=== PATIENT | male | born 1945 | race Caucasian/White ===

== ENCOUNTER 2018-03-24 11:54 | Outpatient (CLI) | payer MEDICARE, OTHER, SELFPAY ==
[2018-03-24 14:22] LABS: Cholesterol 202 mg/dL (50-200); HDL Cholesterol 76 mg/dL (40-60); LDL CHOLESTEROL 116 mg/dL (<100); Triglyceride 87 mg/dL (30-150)
[2018-03-25 11:30] LABS: PSA, Screening 10.5 ng/ml (0-6.5)
== END 2018-03-24 12:14 ==
PROVIDERS: PCP Family Medicine; Visit Provider Family Medicine
DX: R97.20 Elevated prostate specific antigen [PSA] (principal); I10 Essential (primary) hypertension; Z12.5 Encounter for screening for malignant neoplasm of prostate
CPT/HCPCS: 36415; 80061; 83721; 84153

== ENCOUNTER 2018-08-31 14:28 | Outpatient (CLI) | payer MEDICARE, OTHER, SELFPAY ==
[2018-08-31 14:54] LABS: Bilirubin Negative (Negative); Blood Trace-intact (Negative); Clarity Clear; Glucose Negative (Negative); Ketones Negative (Negative); Leukocyte Esterase Negative (Negative); Nitrite Negative (Negative); Urobilinogen 0.2 EU/dL (Up TO 0.2); pH 6.5 (5-8)
[2018-08-31 15:06] LABS: Bacteria Negative HPF (Negative); C & S Indicated? No; Casts Negative LPF (Negative); Crystals Negative HPF (Negative); Epithelial Cells Negative HPF (Negative); Mucus Negative (Negative); WBC 0-2 HPF (0-5)
[2018-08-31 15:44] LABS: ALT 22 U/L (12-78); AST 23 U/L (15-37); Albumin 3.9 g/dL (3.4-5.0); Alkaline Phosphatase 54 U/L (46-116); Anion Gap 8.5 mmol/L (3-11); BUN 21 mg/dL (7-18); Bilirubin, Total 0.8 mg/dL (0.2-1.0); CO2 31.5 mmol/L (21.0-32.0); CREATININE 1.85 mg/dL (0.70-1.30); Calcium 9.2 mg/dL (8.5-10.1); Chloride 106 mmol/L (98-107); Estimated GFR 35.91 (mL/min/1.73m2); Glucose 123 mg/dL (70-100); Potassium 3.2 mmol/L (3.5-5.1); Sodium 146 mmol/L (136-145); Total Protein 6.9 g/dL (6.4-8.2)
[2018-09-01 09:25] LABS: PSA, Screening 12.2 ng/ml (0-6.5)
== END 2018-08-31 14:48 ==
PROVIDERS: PCP Family Medicine
DX: R30.0 Dysuria (principal); R97.20 Elevated prostate specific antigen [PSA]; N40.0 Benign prostatic hyperplasia without lower urinary tract symptoms; I10 Essential (primary) hypertension; Z12.5 Encounter for screening for malignant neoplasm of prostate
CPT/HCPCS: 80053; 84153; 81003; 81015

== ENCOUNTER 2018-09-02 00:42 | Outpatient (CLI) | payer MEDICARE, OTHER, SELFPAY ==
--- NOTE | 2018-09-02 07:32 | DI.US_ITS ---
SYMPTOM/DIAGNOSIS: NEW ONSET URINARY INCONTINENCE, LOW GRADE FEVER, HYPERTENSION, I10, ELEVATED PSA, R97.20,N40.0 RENAL ULTRASOUND: Routine examination was performed. The right kidney measures 11.1 cm. in length. No renal mass or calculus is identified. There is mild to moderate dilatation of the renal collecting system and visualized proximal ureter which persists following voiding. The left kidney measures 11.8 cm. in length. No renal mass or calculus is identified. There is moderate dilatation of the left renal collecting system and visualized proximal ureter which persists following voiding. The urinary bladder prevoid volume is 490 cc's. The bladder wall appears mild to moderately thickened. No intraluminal mass is seen. Incidental note is made of a 1.9 cm. diverticulum along the superior pole of the urinary bladder. Both ureteral jets were visualized. Postvoid urinary bladder volume was large at 400 cc's. The prostate gland is enlarged with an estimated volume of 106 cc's. IMPRESSION: 1. Prostatic hypertrophy. 2. Large postvoid urinary bladder volume. 3. Diffusely thickened urinary bladder wall. This may be due to chronic bladder outlet obstruction. Inflammatory or infectious cystitis cannot be excluded. 4. Persistent dilatation of the collecting systems following voiding. Renal colic CT may be considered for further evaluation.
== END 2018-09-02 01:02 ==
PROVIDERS: PCP Family Medicine
DX: R32 Unspecified urinary incontinence (principal); R50.9 Fever, unspecified; N32.9 Bladder disorder, unspecified; R39.198 Other difficulties with micturition; R97.20 Elevated prostate specific antigen [PSA]; N40.0 Benign prostatic hyperplasia without lower urinary tract symptoms; I10 Essential (primary) hypertension
CPT/HCPCS: 76770

== ENCOUNTER → 2018-09-04 09:40 | Outpatient (BNVA) | payer MEDICARE, OTHER, SELFPAY | PROVIDERS: PCP Family Medicine; Visit Provider Urology | DX: N13.9 Obstructive and reflux uropathy, unspecified (principal) | CPT/HCPCS: 51702 ==

== ENCOUNTER → 2018-09-08 08:00 | Outpatient (BNVA) | payer MEDICARE, OTHER, SELFPAY | PROVIDERS: PCP Family Medicine; Visit Provider Nurse Practitioner Gerontology | DX: R33.9 Retention of urine, unspecified (principal); Z46.6 Encounter for fitting and adjustment of urinary device; I10 Essential (primary) hypertension; R97.20 Elevated prostate specific antigen [PSA]; N40.1 Benign prostatic hyperplasia with lower urinary tract symptoms; R94.4 Abnormal results of kidney function studies | CPT/HCPCS: 51798; 99204; 99215 ==

== ENCOUNTER → 2018-09-16 09:59 | Outpatient (BNVA) | payer MEDICARE, OTHER, SELFPAY | PROVIDERS: PCP Family Medicine; Visit Provider Nurse Practitioner Gerontology | DX: N40.1 Benign prostatic hyperplasia with lower urinary tract symptoms (principal); R33.8 Other retention of urine | CPT/HCPCS: 51798; 99213 ==

== ENCOUNTER → 2018-09-17 08:19 | Outpatient (BNVA) | payer MEDICARE, OTHER, SELFPAY | PROVIDERS: PCP Family Medicine; Visit Provider Nurse Practitioner Gerontology | DX: N40.1 Benign prostatic hyperplasia with lower urinary tract symptoms (principal); R33.9 Retention of urine, unspecified; R97.20 Elevated prostate specific antigen [PSA]; N39.0 Urinary tract infection, site not specified | CPT/HCPCS: 51798; 81003; 99214 ==

== ENCOUNTER 2018-09-17 11:50 | Outpatient (REF) | payer MEDICARE, OTHER, SELFPAY | END 2018-09-17 12:10 | LOC: LBN 11:50 | PROVIDERS: PCP Family Medicine; Visit Provider Nurse Practitioner Gerontology | DX: R33.9 Retention of urine, unspecified (principal) | CPT/HCPCS: 87077; 87086 ==

== ENCOUNTER 2018-09-17 13:12 | Outpatient (CLI) | payer MEDICARE, OTHER, SELFPAY ==
--- NOTE | 2018-09-17 09:30 | DI.US_ITS ---
SYMPTOM/DIAGNOSIS: URINARY RETENTION, R33.9, HYDRONEPHROSIS RENAL ULTRASOUND: The right kidney measures 11.1 by 6.4 by 7.3 cm. The left kidney measures 11.2 by 6.9 by 7.1 cm. The prevoid bladder contains 271 cc's. The postvoid bladder contains 199 cc's. Both ureteral jets were visualized. The bladder wall is 6 mm. in thickness. The prostate is considerably enlarged at a volume of 133 cc. Note is made also of a moderate quantity of debris in the bladder. The bladder wall is trabeculated and thickened. There is bilateral moderate hydronephrosis and note is made of a small left sided bladder wall diverticulum measuring 1.4 by 1.2 by 1.6 cm. There has been no significant interval change when compared with a prior examination of 09/02/18.
== END 2018-09-17 13:32 ==
PROVIDERS: PCP Family Medicine; Visit Provider Nurse Practitioner Gerontology
DX: N13.30 Unspecified hydronephrosis (principal); N40.0 Benign prostatic hyperplasia without lower urinary tract symptoms; N32.3 Diverticulum of bladder
CPT/HCPCS: 51798; 76770; 81003; 99214

== ENCOUNTER 2018-10-05 01:04 | Outpatient (CLI) | payer MEDICARE, OTHER, SELFPAY ==
--- NOTE | 2018-10-05 07:28 | DI.US_ITS ---
SYMPTOM/DIAGNOSIS: F/U HYDRONEPHROSIS, N13.90 RENAL ULTRASOUND: Routine examination. Comparison is made with 09/17/18. The right kidney measures 10 cm. long. There is again seen moderate stable bilateral hydronephrosis. No solid renal mass or calculus is identified. The left kidney measures 12.0 cm. long. There is stable moderate hydronephrosis. No solid renal mass or calculus is seen. The prevoid urinary bladder volume is 540 cc's. The bladder wall appears mildly thickened and irregular. No intraluminal mass is seen. The postvoid urinary bladder volume is 300 cc's. Prostatic volume is enlarged at 95 cc's and impinges upon the base of the bladder. IMPRESSION: Stable bilateral hydronephrosis. Stable appearance of the urinary bladder. Large postvoid urinary bladder volume.
== END 2018-10-05 01:24 ==
PROVIDERS: PCP Family Medicine; Visit Provider Urology
DX: N13.30 Unspecified hydronephrosis (principal); R33.9 Retention of urine, unspecified; N40.0 Benign prostatic hyperplasia without lower urinary tract symptoms
CPT/HCPCS: 76770; 99213

== ENCOUNTER 2018-10-19 12:59 | Inpatient (IN) | payer MEDICARE, OTHER, SELFPAY ==
[2018-10-19] VITALS (13 sets, daily range): BP systolic 100–173; BP diastolic 42–74; PULSE 58–90; RESP 13–20; TEMP 34–37.2; O2SAT 94–98
[2018-10-19] MEDS: Lactated Ringers 1,000 ML 80 ML IV ×3 (10:13→21:42)
--- NOTE | 2018-10-19 10:45 | HPE_ITS ---
Date of service: 10/19/18 Time of Service: 10:40 Assessment and Plan (1) Urinary retention: Current visit: No Status: Acute Since he still has bilateral hydronephrosis in spite of maximal medical therapy, we gave him the option of intermittent catheter sedation versus surgical treatment. He has elected to go ahead with simple prostatectomy via transurethral resection and vaporization of the prostate using bipolar cautery History of Present Illness Chief Complaint: Obstructive uropathy Narrative: This is a 73-year-old gentleman who was initially seen with urinary retention, overflow incontinence and bilateral hydronephrosis. We placed a Desai catheter and started him on alpha blockers. After removing the catheter, he did have clinical improvement, but he continued to have bilateral hydronephrosis on ultrasound. He presents now for transurethral resection of prostate. He has no current dysuria or gross hematuria. He does have some overflow incontinence. Review of Systems Review of Systems No fevers or chills No vision change or dysphasia No diabetes or thyroid No shortness of breath, cough or hemoptysis No chest pain or palpitations Hx GERD and hiatal hernia No seizures, strokes or peripheral neuropathy No bleeding disorders or anemia No gout PFSH Medical History Urinary retention (Acute) Benign prostatic hyperplasia (Chronic) UTI (urinary tract infection) (Acute) Heart burn Hyperlipidemia Hypertension TIA (transient ischemic attack) Surgical History H/O cataract extraction (Inactive) Colonoscopy - IV Sedation MACULAR PUCKER SURGERY excision of, parotid tumor/gland transesophageal echo Family History Mother Stroke Hypertension Father No problems noted. Brother Stroke Social History Smoking/Tobacco Use Status: Former Tobacco Use Quit Date: 06/30/94 Alcohol Intake: current Alcohol Intake frequency: a few times a month Alcohol type: beer and wine Drug use: Never Substance use type: does not use Household members: spouse Pets and animals: Yes Pets and animals: cat(s) What type of physical activity do you participate in: walking and bicycling Duration: 45-60 minutes/day Frequency: daily Venus/Mosque: Restorationist Special venus needs: No Seatbelt use: always Helmet use: Yes Helmet use: always Do you feel safe at home: Yes Do you feel safe in your relationship?: Yes Meds Home Medications Medication Instructions Recorded Confirmed Type aspirin [Aspirin Low-Strength] 81 mg PO DAILY tab-cap 02/07/15 10/19/18 History amlodipine 2.5 mg PO DAILY #90 tab-cap 02/24/18 10/19/18 Rx lisinopril-hydrochlorothiazide 1 tab-cap PO DAILY #90 tab-cap 02/24/18 10/19/18 Rx metoprolol succinate ER 100 mg 100 mg PO DAILY #90 tab-cap 08/11/18 10/19/18 Rx tablet,extended release 24 hr pantoprazole 40 mg tablet,delayed 40 mg PO DAILY PRN #90 tab-cap 08/11/1809/29 Rx release simvastatin 40 mg tablet 40 mg PO DAILY #90 tab-cap 08/11/18 10/19/18 Rx tamsulosin 0.4 mg capsule 0.8 mg PO DAILY #90 cap 09/16/18 10/19/18 Rx Allergies Allergy/AdvReac Type Severity Reaction Status Date / Time milk AdvReac Mild mucus Verified 10/19/18 09:55 Exam Narrative Exam Narrative: He is in no current distress. He is cooperative. He does not appear septic or toxic. His vital signs are documented elsewhere in the chart. His chest wall motion is normal. He does not appear short of breath at rest. His lungs are clear. Cardiac exam shows a regular rate and rhythm. His abdomen is soft with no guarding or rebound tenderness. The kidneys liver and spleen are nonenlarged. There is some suprapubic fullness. There is no amputations or deformities found. He does have a trace of edema in both lower extremities. He is awake, alert and oriented. Results Last Vital Signs Temp 34.0 C L 10/19/18 09:59 Pulse 65 10/19/18 09:59 Resp 16 10/19/18 09:59 BP 173/74 H 10/19/18 09:59 Pulse Ox 96 10/19/18 09:59
[2018-10-19] MEDS: ceFAZolin 1 GM/50 ML BAG IVPB (11:24)
[2018-10-19] MEDS: Lidocaine 2% Jelly 6 ML SYR (11:35)
--- NOTE | 2018-10-19 12:40 | PROST_PTH ---
PATIENT: Meng Kaur LOC: U#:[id number] AGE/SX: 73/M ROOM: [id number] RE10/19/[address]: Joe Julio MD : 1945 BED: A DIS: 10/20/2018 SPEC #: [id number] RECD: 10/19/18 17:37 STATUS: SOUT REQ #: [id number] DOUGIE: 10/19/18 12:[address]: Joe Julio DEPT: Surgical Specimen RECD BY: Georgina Kyle ENTERED: 10/19/18 17:37 SP TYPE: PROST OTHR DR: Dejuan Henderson MD Tissues: 1 - PROSTATE CURRETTINGS Procedures: GROSS AND MICRO LEVEL 4 Comments: [id number]
[2018-10-19] MEDS: fentaNYL 100 MCG/2 ML VIAL IVP ×2 (13:28→13:44)
[2018-10-19] MEDS: traMADol 50 MG TAB PO (14:35)
--- NOTE | 2018-10-19 15:01 | NUR.NOTE ---
Nursing Note: Pt to MS floor from PACU at 1415. A&Ox3. VSS. at bedside. Pt able to transfer to bed with assistance. Three way irrigation munoz; dark red, draining well. No clots evident. Pt familiarized with hospital environment, call christianson within reach. RN will continue to monitor.
--- NOTE | 2018-10-19 15:28 | ROE_ITS ---
DATE OF PROCEDURE: October 19, 2018 PREOPERATIVE DIAGNOSIS: Obstructive uropathy. POSTOPERATIVE DIAGNOSIS: Same. PROCEDURE: Cystoscopy; transurethral resection of prostate with vaporization using bipolar cautery. SURGEON: Joe Julio M.D. ANESTHESIA: General. COMPLICATIONS: None. ESTIMATED BLOOD LOSS: 300 cc's SPECIMENS: Prostate chips. HISTORY: This is a 73-year-old gentleman who initially presented with overflow incontinence and bila teral hydronephrosis. He had a Desai catheter placed and was started on alpha blockers. His urinary symptoms improved, but he continued to have bilateral hydronephrosis. He presents now fo r a transurethral resection. OPERATIVE REPORT: The patient was brought to the Operating Room on 10/19/18. He was given preoperati ve antibiotics. After successful induction of general anesthesia, he was placed in the dorsal lithotomy position. Hi s genitalia was prepped and draped. A 24 Rwandan resectoscope sheath was passed through the urethra into the bladder. We used the visual o bturator to visualize the prostatic lumen. The pendulous, bulbous and membranous urethras all appeared normal. The prostate showed an elevated bladder neck and marked lateral lobe enlargement. He didn't have much of a median lobe. His bladder showed numerous diverticula and trabeculations. No bladder tumors were seen. No stones were present. We then utilized a bipolar resectoscope loop to resect the prostate tissue from the bladder neck out to the verumontanum. The depth of the resection was down to the prostatic capsule. All resected ti ssue was evacuated and sent to Pathology for permanent section. Toward the end of the resection we switched over to the bipolar button and vaporized the prostate eric k to the capsule. This allowed for more hemostasis than the resectoscope alone. Once the resection was completed, we filled the bladder with irrigant. We removed the resectoscope a nd passed a 24 Rwandan hematuria catheter through the urethra into the bladder. The catheter balloon was inflated with 50 cc's of sterile water. Continuous bladder irrigation with saline was begun. Tr action was placed on the catheter until the irrigant became clear.
[2018-10-19] MEDS: Ketorolac 15 MG/ML VIAL IVP ×2 (15:55→21:42)
[2018-10-19] MEDS: Normal Saline Flush 10 ML SYR IV ×2 (15:56→21:41)
[2018-10-19] MEDS: Simvastatin 40 MG TAB PO (19:54)
[2018-10-20] MEDS: Normal Saline Flush 10 ML SYR IV ×2 (01:32→06:18)
[2018-10-20] MEDS: Ketorolac 15 MG/ML VIAL IVP (06:18)
--- NOTE | 2018-10-20 07:07 | W.PM.PROGNOT ---
Date of Service Date of service: 10/20/18 Time of Service: 07:00 Assessment and Plan (1) Urinary retention: Current visit: No Status: Acute We will discontinue both his IV fluids and his continuous bladder irrigation. I will recheck him in another hour or so once his blood work is available. At that point, we can decide if we need to restart his bladder irrigation or if we could discharge him from the hospital today. If he is able to be discharged, we will also decide if we can remove his catheter today or if he should go home with a catheter and come back for voiding trial in a few days. Subjective Interval history since last seen: He had a fairly comfortable night with no episodes of clot retention. He is tolerating p.o. intake with no nausea or vomiting. He is not been febrile or lightheaded. He has no shortness of breath. He has no chest pain. Exam Narrative Exam Narrative: He looks well. His vital signs are documented elsewhere. His urine is clear with CBI. He is awake and alert. His lab work is pending as of this time Objective Objective Clinical Data: Vital Signs Temperature 36.7 C 10/19/18 23:57 Temperature Source Tympanic 10/19/18 23:57 Pulse 62 10/19/18 23:57 Pulse Rhythm Regular 10/19/18 19:45 Respiratory Rate 18 10/19/18 23:57 Respiratory Effort Non-Labored 10/19/18 19:45 Respiratory Depth Normal 10/19/18 19:45 Respiratory Pattern Normal 10/19/18 19:45 Blood Pressure 112/58 L 10/19/18 23:57 Pulse Oximetry 95 10/19/18 23:57 Oxygen Delivery Method Room Air 10/19/18 23:57 Oxygen Flow Rate 0 10/19/18 23:57 Pain Level 6 10/19/18 14:35 Intake & Output 10/19/18 10/19/18 10/20/18 11:59 23:59 11:59 Intake Total 50 / 3202.000 3152.000 / 3202.000 400 / 400 Balance 50 / 3202.000 3152.000 / 3202.000 400 / 400 Weight 77.6 kg Intake: IV 50 / 7980.932 4342.000 / 1971.000 Oral 1230 / 1230 400 / 400 Other: Urine Color Dark Red Urine Appearance Clear Hematuria Comment No complications noted at time of admission to MS floor. Flushing well. RN will continue to monitor. Emesis Description None
[2018-10-20 07:15] LABS: HCT 29.2 % (40.0-50.0); HGB 9.4 g/dL (13.5-17.5); Mean Corp. HGB Concentration 32.2 g/dL (32.0-36.0); Mean Corpuscular Hemoglobin 28.9 pg (27.0-33.0); Mean Corpuscular Volume 89.8 fL (80-95); Mean Platelet Volume 11.9 fL (8.0-11.0); Platelet Count 112 x1000/uL (130-400); RBC 3.25 m/cumm (4.50-6.00); RBC Distribution Width 13.3 % (11.8-14.1); White Blood Cell Count 6.49 k/cumm (4.4-10.8)
[2018-10-20 07:19] LABS: Anion Gap 6.9 mmol/L (3-11); BUN 21 mg/dL (7-18); CO2 29.1 mmol/L (21.0-32.0); CREATININE 1.74 mg/dL (0.70-1.30); Chloride 104 mmol/L (98-107); Estimated GFR 38.44 (mL/min/1.73m2); Glucose 102 mg/dL (70-100); Potassium 3.4 mmol/L (3.5-5.1); Sodium 140 mmol/L (136-145)
[2018-10-20 07:43] VITALS: BP 131/66; PULSE 80; RESP 16; TEMP 37.2; O2SAT 94
[2018-10-20] MEDS: Metoprolol CR 100 MG TABCR PO (07:46)
[2018-10-20] MEDS: amLODIPine 2.5 MG TAB PO (07:46)
[2018-10-20] MEDS: hydroCHLOROthiazide 12.5 MG TAB PO (07:46)
[2018-10-20] MEDS: Lisinopril 20 MG TAB PO (07:47)
[2018-10-20] MEDS: Potassium Chloride 10 MEQ TABCR PO (12:17)
--- NOTE | 2018-10-20 14:10 | PDOC.CMIN ---
- If Service Date Differs Date of service: 10/20/18 Time of Service: 14:11 Care Management Initial Assess REASON FOR HOSPITALIZATION:: Urinary retention PAST MEDICAL HISTORY/PAST SURGICAL HISTORY:: Medical History: Urinary retention, Benign prostatic hyperplasia, UTI (urinary tract infection). Heart burn, Hyperlipidemia, Hypertension, TIA (transient ischemic attack). Surgical History: H/O cataract extraction,. Colonoscopy - IV Sedation. MACULAR PUCKER SURGERY. excision of, parotid tumor/gland. transesophageal echo PREVIOUS FUNCTIONAL STATUS/SOCIAL/FAMILY SUPPORTS:: Meng lives at home with his in an apartment in [place]. He has no children but his has 4 adult children who live in [place] and [place]. He is independent with all activities and drives. He is retired but remains very active. CURRENT FUNCTIONAL STATUS:: Meng was sitting up in bed during CM visit. He was open to answering questions and was engaged. He hopes to be discharged today. Has patient been provided with information about the portal?: Yes Did the patient sign up for the portal?: No CODE STATUS:: Full Code INSURANCE COVERAGE / FINANCIAL ISSUES:: Medicare. [employer] CURRENT HOME/COMMUNITY SERVICES/EQUIPMENT:: none PRIMARY CARE PHYSICIAN:: Dejuan Henderson MD POTENTIAL DISCHARGE NEEDS:: None PATIENT/FAMILY EDUCATION NEEDS:: Discharge plan, limitations, munoz catheter care, follow up plan of care and Ask Me Three ANTICIPATED BARRIERS TO DISCHARGE:: None TRANSPORTATION:: Via private auto with PLAN:: Meng will be discharged home with a munoz catheter in place. He is to follow up with Urology or Friday for catheter removal and again in a week or two for bladder scanning.
--- NOTE | 2018-10-20 14:35 | INITIAL_ITS ---
- If Service Date Differs Date of service: 10/20/18 Time of Service: 14:11 Care Management Initial Assess REASON FOR HOSPITALIZATION:: Urinary retention PAST MEDICAL HISTORY/PAST SURGICAL HISTORY:: Medical History: Urinary retention, Benign prostatic hyperplasia, UTI (urinary tract infection). Heart burn, Hyperlipidemia, Hypertension, TIA (transient ischemic attack). Surgical History: H/O cataract extraction,. Colonoscopy - IV Sedation. MACULAR PUCKER SURGERY. excision of, parotid tumor/gland. transesophageal echo PREVIOUS FUNCTIONAL STATUS/SOCIAL/FAMILY SUPPORTS:: Meng lives at home with his in an apartment in [place]. He has no children but his has 4 adult children who live in [place] and [place]. He is independent with all activities and drives. He is retired but remains very active. CURRENT FUNCTIONAL STATUS:: Meng was sitting up in bed during CM visit. He was open to answering questions and was engaged. He hopes to be discharged today. Has patient been provided with information about the portal?: Yes Did the patient sign up for the portal?: No CODE STATUS:: Full Code INSURANCE COVERAGE / FINANCIAL ISSUES:: Medicare. [employer] CURRENT HOME/COMMUNITY SERVICES/EQUIPMENT:: none PRIMARY CARE PHYSICIAN:: Dejuan Henderson MD POTENTIAL DISCHARGE NEEDS:: None PATIENT/FAMILY EDUCATION NEEDS:: Discharge plan, limitations, munoz catheter care, follow up plan of care and Ask Me Three ANTICIPATED BARRIERS TO DISCHARGE:: None TRANSPORTATION:: Via private auto with PLAN:: Meng will be discharged home with a munoz catheter in place. He is to follow up with Urology or Friday for catheter removal and again in a week or two for bladder scanning.
--- NOTE | 2018-10-20 14:35 | PDOC.CMDIS ---
- If Service Date Differs Date of service: 10/20/18 Time of Service: 14:35 LACE Index Scoring Tool - Questions: Length of Stay (in days): 1 Acuity (Admit via E.D.?): No E.D. Visits: 0 - Answers: Total Score: 1 Risk of Readmission: Low Risk Care Management Discharge Reason for Hospitalization: Urinary retention Discharge Plan: Meng will be discharged home with a munoz catheter in place. He is to follow up with Urology or Friday for catheter removal and again in a week or two for bladder scanning. Patient/Family Education Needs: Discharge plan, limitations, munoz catheter care, follow up plan of care and Ask Me Three
--- NOTE | 2018-10-20 16:11 | DSE_ITS ---
Date of service: 10/20/18 Time of Service: 11:29 DS: Diagnosis Discharge Diagnosis (1) Urinary retention: Status: Acute Discharge Plan Disposition Patient Disposition: HOME Condition: Stable Discharge Details Reason For Visit: OBSTRUCTIVE UROPATHY Admit Date/Time: 10/19/18 12:59 Admit Provider: Joe Julio Attending Provider: Joe Julio Primary Care Provider: Dejuan Henderson Hospital Course Hospital Course: The patient was admitted and underwent a TURP with vaporization of the prostate on 10/19/18. A munoz catheter was left in place and continuous bladder irrigation was run overnight. By POD #1, his irrigant was clear, so we discontinued the bladder irrigation. His urine was red tinged but transparent, so we are discharging him to home with his catheter still in place. Home Meds and New Rx's Prescriptions: New sulfamethoxazole-trimethoprim [Bactrim DS] 800-160 mg tablet 1 tab PO DAILY Qty: 7 RF: 0 No Action tamsulosin 0.4 mg capsule 0.8 mg PO DAILY Qty: 90 RF: 4 tramadol 50 mg tablet 50 mg PO Q6H PRN (Reason: pain) Qty: 12 RF: 0 aspirin [Aspirin Low-Strength] 81 MG tablet,chewable 81 mg PO DAILY RF: 0 lisinopril-hydrochlorothiazide 1 EACH tablet 1 tab-cap PO DAILY Qty: 90 RF: 3 amlodipine 2.5 MG tablet 2.5 mg PO DAILY Qty: 90 RF: 3 metoprolol succinate 100 mg tablet extended release 24 hr 100 mg PO DAILY Qty: 90 RF: 4 pantoprazole 40 mg tablet,delayed release (DR/EC) 40 mg PO DAILY PRN (Reason: gerd) Qty: 90 RF: 1 simvastatin 40 mg tablet 40 mg PO DAILY Qty: 90 RF: 4 Discharge Instructions Instructions: Transurethral Prostatectomy (DC) Additional Instructions: Munoz to leg bag F/U or Friday for catheter removal Also needs F/U appt for 1 to 2 weeks for bladder scan and to review pathology Pt to remain off aspirin until catheter removed Stand Alone Forms: Nursing Discharge Form Referrals: Joe Julio MD [ [facility] STAFF PHYSICIAN] - 11/03/18 9:00 am Laila Bray NP [NURSE PRACTITIONER] - 10/22/18 8:00 am Activity:: no lifting over 10 pounds Equipment/Supplies:: munoz to leg bag Diet:: As Tolerated Discharge Orders Discharge Orders: Discharge Order (Routine); Ordered 10/20/18 Ordered By: Joe Julio Discharge Data Discharge Date/Time-TO BE ENTERED AT DEPARTURE: 10/20/18 13:26 Exam Narrative Exam Narrative: At the time of discharge, he looked comfortable. His vital signs are documented elsewhere. His chest wall motion was normal. He is not short of breath at rest. Cardiac exam showed a regular rate and rhythm. His abdomen is soft with no masses. His bladder was not distended. Munoz catheter was in place and was draining pink tinged urine but no clots were seen He is awake and alert. DS: Data Vitals/I&O Vitals and I&O: Vital Signs Temperature 37.2 C 10/20/18 07:43 Temperature Source Skin 10/20/18 07:43 Pulse 80 10/20/18 07:43 Pulse Rhythm Regular 10/20/18 07:44 Respiratory Rate 16 10/20/18 07:43 Respiratory Effort Non-Labored 10/20/18 07:44 Respiratory Depth Normal 10/20/18 07:44 Respiratory Pattern Normal 10/20/18 07:44 Blood Pressure 131/66 10/20/18 07:43 Pulse Oximetry 94 L 10/20/18 07:43 Oxygen Delivery Method Room Air 10/19/18 23:57 Oxygen Flow Rate 0 10/19/18 23:57 Pain Level 0 10/20/18 07:43 Intake & Output 10/19/18 10/20/18 10/20/18 23:59 11:59 23:59 Intake Total 3152.000 / 3202.000 500 / 500 Balance 3152.000 / 3202.000 500 / 500 Intake: IV 1922.000 / 1972.000 100 / 100 Oral 1230 / 1230 400 / 400 Other: Urine Color Dark Red Urine Appearance Hematuria Hematuria Comment No complications noted at time of admission to MS floor. Flushing well . RN will continue to monitor. Emesis Description None Labs on day of discharge: Labs from last 24 hours 10/20/18 10/20/18 06:04 06:04 WBC 6.49 RBC 3.25 L Hgb 9.4 L Hct 29.2 L MCV 89.8 MCH 28.9 MCHC 32.2 RDW 13.3 Plt Count 112 L MPV 11.9 H Sodium 140 Potassium 3.4 L Chloride 104 Carbon Dioxide 29.1 Anion Gap 6.9 BUN 21 H Creatinine 1.74 H Estimated GFR/1.73 m2 38.44 Glucose 102 H Calcium 8.0 L PFSH Medical History Urinary retention (Acute) Benign prostatic hyperplasia (Chronic) UTI (urinary tract infection) (Acute) Heart burn Hyperlipidemia Hypertension TIA (transient ischemic attack) Surgical History H/O cataract extraction (Inactive) Colonoscopy - IV Sedation MACULAR PUCKER SURGERY excision of, parotid tumor/gland transesophageal echo Family History Mother Stroke Hypertension Father No problems noted. Brother Stroke Social History Smoking/Tobacco Use Status: Former Tobacco Use Quit Date: 06/30/94 Alcohol Intake: current Alcohol Intake frequency: a few times a month Alcohol type: beer and wine Drug use: Never Substance use type: does not use Household members: spouse Pets and animals: Yes Pets and animals: cat(s) What type of physical activity do you participate in: walking and bicycling Duration: 45-60 minutes/day Frequency: daily Venus/Mormon: Sabianism Special venus needs: No Seatbelt use: always Helmet use: Yes Helmet use: always Do you feel safe at home: Yes Do you feel safe in your relationship?: Yes
== END 2018-10-20 13:26 | disposition home or self-care (01) | DRG 713 ==
LOC: PDS 13:17 → MS 13:57
PROVIDERS: Admitting Provider Urology; PCP Family Medicine; Visit Provider Urology
PROC: 0VT08ZZ Resection of Prostate, Via Natural or Artificial Opening Endoscopic (ICD-10-PCS; CPT 52601; principal; 2018-10-19 11:00)
DX: N40.0 Benign prostatic hyperplasia without lower urinary tract symptoms (principal); N13.30 Unspecified hydronephrosis; R33.8 Other retention of urine; N41.1 Chronic prostatitis; N32.3 Diverticulum of bladder; N32.89 Other specified disorders of bladder; N39.490 Overflow incontinence; I10 Essential (primary) hypertension; E78.5 Hyperlipidemia, unspecified
CPT/HCPCS: 52601; 36415; 80048; 85027; 88305; 99213; NC; J0690; J1885; J2405; J3010

== ENCOUNTER → 2018-10-22 07:50 | Outpatient (BNVA) | payer MEDICARE, OTHER, SELFPAY | PROVIDERS: PCP Family Medicine; Visit Provider Nurse Practitioner Gerontology | DX: R33.9 Retention of urine, unspecified (principal); I10 Essential (primary) hypertension; Z48.816 Encounter for surgical aftercare following surgery on the genitourinary system | CPT/HCPCS: 99213 ==

== ENCOUNTER → 2018-10-26 09:16 | Outpatient (BNVA) | payer MEDICARE, OTHER, SELFPAY | PROVIDERS: PCP Family Medicine; Visit Provider Urology | DX: R33.9 Retention of urine, unspecified (principal); I10 Essential (primary) hypertension; Z48.816 Encounter for surgical aftercare following surgery on the genitourinary system; N13.9 Obstructive and reflux uropathy, unspecified | CPT/HCPCS: 51798 ==

== ENCOUNTER → 2018-11-30 08:19 | Outpatient (BNVA) | payer MEDICARE, OTHER, SELFPAY | PROVIDERS: PCP Family Medicine; Visit Provider Urology | DX: R33.9 Retention of urine, unspecified (principal); I10 Essential (primary) hypertension | CPT/HCPCS: 51798; 99213 ==

== ENCOUNTER 2018-11-30 08:46 | Outpatient (CLI) | payer MEDICARE, OTHER, SELFPAY ==
[2018-11-30 11:07] LABS: Albumin 3.6 g/dL (3.4-5.0); Anion Gap 6.8 mmol/L (3-11); BUN 23 mg/dL (7-18); CO2 29.2 mmol/L (21.0-32.0); Calcium 9.3 mg/dL (8.5-10.1); Chloride 106 mmol/L (98-107); Estimated GFR 53.82 (mL/min/1.73m2); Glucose 84 mg/dL (70-100); PHOSPHORUS 2.9 mg/dL (2.6-4.7); Potassium 4.1 mmol/L (3.5-5.1); Sodium 142 mmol/L (136-145)
== END 2018-11-30 09:06 ==
PROVIDERS: Nurse Practitioner Gerontology; PCP Family Medicine; Visit Provider Urology
DX: N28.9 Disorder of kidney and ureter, unspecified; R33.9 Retention of urine, unspecified; I10 Essential (primary) hypertension
CPT/HCPCS: 36415; 51798; 80069; 99213; 82565

== ENCOUNTER 2019-05-01 19:49 | Emergency (ER) | payer MEDICARE, OTHER, SELFPAY ==
[2019-05-01 19:52] VITALS: BP 166/67; PULSE 78; RESP 16; TEMP 36.8; O2SAT 97
--- NOTE | 2019-05-01 20:18 | W.ED.GENAD ---
Discharge Plan Disposition Patient Disposition: HOME Condition: Good Discharge Details Chief Complaint: DentalOral Clinical Impression: Gingival abscess Primary Care Provider: Dejuan Henderson ED Provider: Liborio Melendez Home Meds and New Rx's Prescriptions: New amoxicillin-pot clavulanate [Augmentin] 875-125 mg tablet 1 tab PO BID 7 Days Qty: 14 RF: 0 No Action doxycycline hyclate 100 mg tablet 100 mg PO BID Qty: 20 RF: 0 metoprolol succinate 100 mg tablet extended release 24 hr 100 mg PO DAILY Qty: 90 RF: 4 aspirin [Aspirin Low-Strength] 81 MG tablet,chewable 81 mg PO DAILY RF: 0 lisinopril-hydrochlorothiazide 1 EACH tablet 1 tab-cap PO DAILY Qty: 90 RF: 3 amlodipine 2.5 MG tablet 2.5 mg PO DAILY Qty: 90 RF: 3 pantoprazole 40 mg tablet,delayed release (DR/EC) 40 mg PO DAILY PRN (Reason: gerd) Qty: 90 RF: 1 simvastatin 40 mg tablet 40 mg PO DAILY Qty: 90 RF: 4 guaifenesin [Mucinex] 600 mg tablet extended release 12hr 600 mg PO Q12H PRN (Reason: congestion) Qty: 30 RF: 0 Discharge Instructions Instructions: Dental Abscess (ED) Additional Instructions: The abscess has been drained. Please take the new antibiotic Augmentin as directed. Please stop taking the doxycycline. This was a good antibiotic however I do feel that Augmentin would be better now that we know that this is likely coming from your teeth. Please follow-up closely with your dentist on Friday. If at that time there is still swelling, and atypical morphology of the gingiva it may require a biopsy. In the meantime I would recommend giving it time to allow it to heal first before reassessment. Please continue to take Tylenol for pain. You can also take 1 dose of ibuprofen 600 mg daily. He will not have any significant interaction with your aspirin. If you notice any worsening of your symptoms, or any new symptoms such as vomiting, diarrhea, fever, chills, shortness of breath, chest pain, numbness, weakness, or fainting , please return immediately to the emergency department for reevaluation. Please follow up with your primary care provider as soon as possible for reassessment and reevaluation. As always, it was a pleasure participating in your medical care today. Referrals: Dejuan Henderson [Primary Care Provider] - Medical Decision Making This is a 73-year-old male who presents for a lesion on his right upper gumline. Is over tooth 6 and 7. Patient had mild swelling and pain in this area 2 days ago, he was treated with doxycycline for potential cellulitis. The swelling began today, also began having a mild amount of purulent/bloody discharge. The area was incised and drained and a notable amount of purulent material did come out. After the procedure the remaining gingival flap did feel slightly atypical and thickened compared to normal. This does elicit concern that there may have been an underlying pathology of the gingiva/mucosa prior to this swelling episode. We will transition the patient to Augmentin as I feel this may be more ideal now that we know that this is a tooth related etiology. Discussed the importance and potential need for biopsy if the atypical tactile nature of the gingival mucosa remains after healing. Discussed red flags for which to return. Of note patient's pain and symptoms nearly completely resolved after lysing of the abscess. I have extensively reviewed the treatment plan and discharge instructions with the patient and their family. I have addressed all patient concerns at this time. The patient and family was made aware of what symptoms to monitor for that would warrant a return to the emergency department. Discussed the plan with the patient and family, they demonstrate verbal understanding and agreement with our assessment and plan at this time. Time out was taken to identify the correct patient, procedure, and site. Risks and benefits were discussed with the patient and consent was obtained. Direct pressure was held over the area prior to the procedure to reduce painful injection. Hurricaine gel was applied around the tooth over the painful tooth. Moderate analgesia was obtained. The abscess was then incised with a 1 cm incision with an 11 blade and a moderate amount of pus and blood returned. The patient tolerated the procedure. There were no complications. HPI General Date/Time Provider Initiated Documentation: 05/01/19 19:57. HPI Narrative: This is a 73-year-old male with a past medical history of hypertension, high cholesterol, who presents today for evaluation of swelling and drainage in his right upper dental space. Patient states that 2 to 3 days ago he demonstrated some mild swelling in the right side of his face with some pain over the upper tooth. At that time there is no evidence of abscess, and he was started on doxycycline for concern for cellulitis. He has had 2 days of doxycycline for the cellulitis. However since then he has noticed a significant amount of swelling over the right upper gingival space. It has been draining a small amount of pus and blood. He presents now for evaluation of this. He does admit to mild to moderate pain. He has been taking Tylenol which is slightly improved the pain. He denies any other complaints at this time. He denies any fever, chills, neck pain or headache. He does have a distant tobacco abuse history for smoking, but he denies any tobacco to use. He does have an appointment with his dentist in 2 days. Related Data Home Medications Medication Instructions Recorded Confirmed aspirin [Aspirin Low-Strength] 81 mg PO DAILY tab-cap 02/07/15 05/01/19 amlodipine 2.5 mg PO DAILY #90 tab-cap 02/24/18 05/01/19 lisinopril-hydrochlorothiazide 1 tab-cap PO DAILY #90 tab-cap 02/24/18 05/01/19 pantoprazole 40 mg tablet,delayed 40 mg PO DAILY PRN #90 tab-cap 08/11/18 05/01/19 release simvastatin 40 mg tablet 40 mg PO DAILY #90 tab-cap 08/11/18 05/01/19 metoprolol succinate 100 mg 100 mg PO DAILY #90 tab-cap 03/16/19 05/01/19 tablet,extended release 24 hr guaifenesin 600 mg tablet, 600 mg PO Q12H PRN #30 tab 04/29/19 05/01/19 extended release 12 hr doxycycline hyclate 100 mg tablet 100 mg PO BID #20 tab 04/30/19 05/01/19 amoxicillin-pot clavulanate 1 tab PO BID 7 Days #14 tab 05/01/19 [Augmentin] Previous Rx's Medication Instructions Recorded amlodipine 2.5 mg PO DAILY #90 tab-cap 02/24/18 lisinopril-hydrochlorothiazide 1 tab-cap PO DAILY #90 tab-cap 02/24/18 pantoprazole 40 mg tablet,delayed 40 mg PO DAILY PRN #90 tab-cap 08/11/18 release simvastatin 40 mg tablet 40 mg PO DAILY #90 tab-cap 08/11/18 metoprolol succinate 100 mg 100 mg PO DAILY #90 tab-cap 03/16/19 tablet,extended release 24 hr guaifenesin 600 mg tablet, 600 mg PO Q12H PRN #30 tab 04/29/19 extended release 12 hr doxycycline hyclate 100 mg tablet 100 mg PO BID #20 tab 04/30/19 amoxicillin-pot clavulanate 1 tab PO BID 7 Days #14 tab 05/01/19 [Augmentin] Allergies Allergy/AdvReac Type Severity Reaction Status Date / Time milk AdvReac Mild mucus Verified 04/30/19 11:15 General Stated Complaint: DentalOral RUSS: 3 Review of Systems All systems reviewed & are unremarkable except as noted in HPI and below PFSH Family History (Updated 03/18/19 @ 09:48 by Edu Collins) Mother , AGE 86 Stroke Hypertension Father , AGE 39 No problems noted. Brother , AGE 77 Stroke Maternal Grandfather , age 80 No problems noted. Paternal Grandfather , age 80s No problems noted. Maternal Grandmother , age 90s No problems noted. Paternal Grandmother , age 90s No problems noted. Social History (Updated 03/18/19 @ 09:43 by Edu Collins) Smoking/Tobacco Use Status: Former Tobacco Use Quit Date: 06/30/94 Tobacco: How many years used: 25 Alcohol Intake: current Alcohol Intake frequency: a few times a month Alcohol type: beer and wine Drug use: Never Substance use type: does not use Household members: spouse Housing: apartment Communication Needs: None Do you need help understanding health information?: Never Pets and animals: Yes Pets and animals: cat(s) Sexually active: Yes Do you think of yourself as: straight/heterosexual Current gender identity: decline to answer What is your relationship status?: How often do you talk on the phone with friends or family?: decline to answer How often do you get together with friends or relatives?: decline to answer How often do you attend islam or scientology services?: decline to answer Do you belong to any clubs or organized social groups?: decline to answer Panel score (0-1 are the most socially isolated patients): 1 What type of physical activity do you participate in: walking, weight lifting and running Duration: 30-45 minutes/day Frequency: 3-4 times per week Venus/Congregational: Oriental Orthodox Special venus needs: No Seatbelt use: always Helmet use: No Drive intox or ride w/intox medical delivery driver: No Do you feel safe at home: Yes Do you feel safe in your relationship?: Yes Exam Narrative Exam Narrative: 1.Const: Well-nourished, Well-developed, appearing stated age 2.Eyes: PERRL, no conjunctival injection, and symmetrical lids. 3.ENT: Atraumatic external nose and ears. Moist MM. Neck: Symmetric, trachea midline, No thyromegaly. There are notable dental caries, the patient does have small fluctuant bulge over tooth 6 and 7. Small amount of purulent drainage is present. No other evidence of infection or cellulitis anywhere else. No significant swelling over the face. 4.CVS: +S1/S2, No murmurs or gallops. Peripheral pulses 2+ and equal in all extremities. Brisk capillary refill in all extremities. 5.RESP: Unlabored respiratory effort. Clear to auscultation bilaterally. No wheezes rales or rhonchi 6.GI: Soft, Nontender/Nondistended, No hepatosplenomegaly. No guarding or rebound. 7.MSK: Normocephalic/Atraumatic, Extremities w/o deformity or ttp No cyanosis or clubbing, Normal movement of all extremities 8.Skin: Warm, Dry. No rashes or lesions. 9.Neuro: stopping builder II-XII grossly intact. Sensation grossly intact, no focal neurologic deficits. 10.Psych: (AAO) x3. Appropriate mood and affect Course Vital Signs Vital signs: Vital Signs Temperature 36.8 C 05/01/19 19:52 Pulse 78 05/01/19 19:52 Respiratory Rate 16 05/01/19 19:52 Blood Pressure 166/67 H 05/01/19 19:52 Pulse Oximetry 97 05/01/19 19:52 Temperature 36.8 C 05/01/19 19:52 Pulse 78 05/01/19 19:52 Respiratory Rate 16 05/01/19 19:52 Respiratory Effort 05/01/19 19:56 Blood Pressure 166/67 H 05/01/19 19:52 Blood Pressure Position Supine 05/01/19 19:52 Pulse Oximetry 97 05/01/19 19:52 Oxygen Delivery Method Room Air 05/01/19 19:52 Oxygen Flow Rate 0 05/01/19 19:52 Pain Level 7 05/01/19 19:52
[2019-05-01] MEDS: Amoxicillin 875/Clav. 125 TAB PO (20:26)
--- NOTE | 2019-05-01 20:33 | NUR.NOTE ---
Med a/o. abscess drained by MD Melendez. Discharge instructions reviewed with verbal understanding. aware to f/u with dentist on Thursday 05/03 as planned. Augmentin script given. Ambulated to exit with steady gait.
== END 2019-05-01 20:35 | disposition home or self-care (01) ==
LOC: ER 20:21
PROVIDERS: Emergency Provider Student in an Organized Health Care Education/Training Program; PCP Family Medicine
DX: K04.7 Periapical abscess without sinus (principal); I10 Essential (primary) hypertension
CPT/HCPCS: 10060; 99283

== ENCOUNTER 2019-05-25 07:54 | Outpatient (CLI) | payer MEDICARE, OTHER, SELFPAY ==
[2019-05-25 09:07] LABS: CREATININE 1.49 mg/dL (0.70-1.30); Estimated GFR 45.98 (mL/min/1.73m2)
== END 2019-05-25 08:14 ==
PROVIDERS: PCP Family Medicine; Visit Provider Family Medicine
DX: R33.9 Retention of urine, unspecified (principal)
CPT/HCPCS: 36415; 82565

== ENCOUNTER → 2019-06-01 08:29 | Outpatient (BNVA) | payer MEDICARE, OTHER, SELFPAY | PROVIDERS: PCP Family Medicine; Referring Provider Family Medicine; Visit Provider Urology | DX: R33.9 Retention of urine, unspecified (principal) | CPT/HCPCS: 99213 ==

== ENCOUNTER 2019-12-07 03:42 | Outpatient (CLI) | payer MEDICARE, OTHER, SELFPAY ==
[2019-12-07 12:59] LABS: BUN 26 mg/dL (7-18); CREATININE 1.44 mg/dL (0.70-1.30); Calcium 9.4 mg/dL (8.5-10.1); Chloride 105 mmol/L (98-107); Glucose 124 mg/dL (74-106); Potassium 4.3 mmol/L (3.5-5.1); Sodium 143 mmol/L (136-145)
== END 2019-12-07 04:02 ==
PROVIDERS: PCP Family Medicine; Visit Provider Urology
DX: R33.9 Retention of urine, unspecified (principal)
CPT/HCPCS: 36415; 80048

== ENCOUNTER → 2019-12-14 14:49 | Outpatient (BNVA) | payer MEDICARE, OTHER, SELFPAY | PROVIDERS: PCP Family Medicine; Referring Provider Family Medicine; Visit Provider Urology | DX: R33.8 Other retention of urine (principal); R97.20 Elevated prostate specific antigen [PSA] | CPT/HCPCS: 99213 ==

== ENCOUNTER 2020-02-02 08:27 | Outpatient (CLI) | payer MEDICARE, OTHER, SELFPAY ==
[2020-02-02 12:50] LABS: Calculated LDL 124 mg/dL (<100); Cholesterol 207 mg/dL (<200); HDL Cholesterol 67 mg/dL (40-60); Triglyceride 80 mg/dL (<150)
[2020-02-02 13:54] LABS: Hemoglobin A1C 5.8 % (3.8-5.6)
== END 2020-02-02 08:47 ==
PROVIDERS: PCP Family Medicine; Visit Provider Family Medicine
DX: E78.5 Hyperlipidemia, unspecified (principal); R73.9 Hyperglycemia, unspecified
CPT/HCPCS: 36415; 80061; 83036

== ENCOUNTER 2020-05-30 03:40 | Outpatient (CLI) | payer MEDICARE, OTHER, SELFPAY ==
[2020-05-30 11:01] LABS: Anion Gap 6.3 mmol/L (3-11); BUN 32 mg/dL (7-18); CO2 29.7 mmol/L (21.0-32.0); CREATININE 1.31 mg/dL (0.70-1.30); Calcium 9.6 mg/dL (8.5-10.1); Chloride 106 mmol/L (98-107); Glucose 87 mg/dL (74-106); Potassium 4.6 mmol/L (3.5-5.1); Sodium 142 mmol/L (136-145)
[2020-05-30 21:58] LABS: PSA, Diagnostic 4.7 ng/mL (0.0-6.5)
== END 2020-05-30 04:00 ==
PROVIDERS: PCP Family Medicine; Visit Provider Urology
DX: R33.9 Retention of urine, unspecified (principal); R97.20 Elevated prostate specific antigen [PSA]
CPT/HCPCS: 36415; 80048; 84153

== ENCOUNTER → 2020-06-13 09:18 | Outpatient (BNVA) | payer MEDICARE, OTHER, SELFPAY | PROVIDERS: PCP Family Medicine; Referring Provider Family Medicine; Visit Provider Urology | DX: R33.8 Other retention of urine (principal); I10 Essential (primary) hypertension | CPT/HCPCS: 99213 ==

== ENCOUNTER 2020-11-28 02:49 | Outpatient (CLI) | payer MEDICARE, OTHER, SELFPAY ==
[2020-11-28 11:15] LABS: Anion Gap 7.8 mmol/L (3-11); BUN 27 mg/dL (7-18); CO2 30.2 mmol/L (21.0-32.0); CREATININE 1.5 mg/dL (0.70-1.30); Calcium 9.6 mg/dL (8.5-10.1); Chloride 105 mmol/L (98-107); Estimated GFR 45.38 (mL/min/1.73m2); Glucose 87 mg/dL (74-106); Potassium 4.5 mmol/L (3.5-5.1); Sodium 143 mmol/L (136-145)
== END 2020-11-28 02:50 | disposition home or self-care (01) ==
LOC: LBO 02:49
PROVIDERS: PCP Family Medicine; Visit Provider Urology
DX: R33.9 Retention of urine, unspecified (principal)
CPT/HCPCS: 36415; 80048

== ENCOUNTER 2020-11-30 00:50 | Outpatient (CLI) | payer MEDICARE, OTHER, SELFPAY ==
--- NOTE | 2020-11-30 08:30 | DI.RAD_ITS ---
Exam(s) XR FOOT LT COMPLETE EXAM: XR FOOT LT COMPLETE CLINICAL HISTORY: r/o stress fracture,FOOT PAIN, M79.673. TECHNIQUE: 2D digital imaging was performed. COMPARISON: No exams were available for comparison FINDINGS: BONES: No acute or healing fracture is present. No bony destructive lesion is seen. Small plantar alicia caneal spur. JOINTS: No dislocation present. SOFT TISSUE: Normal. Atherosclerosis. IMPRESSION: No acute abnormality. DATA REPOSITORY: RADIATION DOSE DELIVERED:
== END 2020-11-30 01:10 ==
PROVIDERS: PCP Family Medicine; Visit Provider Nurse Practitioner
DX: M79.672 Pain in left foot (principal); M77.32 Calcaneal spur, left foot
CPT/HCPCS: 73630

== ENCOUNTER → 2020-12-12 09:50 | Outpatient (BNVA) | payer MEDICARE, OTHER, SELFPAY | PROVIDERS: PCP Family Medicine; Referring Provider Family Medicine; Visit Provider Nurse Practitioner Gerontology | DX: R33.8 Other retention of urine (principal) | CPT/HCPCS: 99213 ==

== ENCOUNTER 2021-02-19 02:12 | Outpatient (CLI) | payer MEDICARE, OTHER, SELFPAY ==
[2021-02-19 11:06] LABS: Source Nasal/Nares
[2021-02-19 13:57] LABS: COVID-19 PCR Negative (Negative)
== END 2021-02-19 02:13 | disposition home or self-care (01) ==
LOC: LBO 02:12
PROVIDERS: PCP Family Medicine; Visit Provider Surgery
DX: Z20.822 Contact with and (suspected) exposure to COVID-19 (principal); Z01.818 Encounter for other preprocedural examination
CPT/HCPCS: 87635

== ENCOUNTER 2021-02-20 08:50 | Day surgery (SDC) | payer MEDICARE, OTHER, SELFPAY ==
--- NOTE | 2021-02-19 20:59 | W.PM.HP.N ---
Date of service: 02/20/21 Assessment and Plan Assessment and plan (1) GERD (gastroesophageal reflux disease): Status: Acute (2) Cerebral artery occlusion with cerebral infarction: Status: Acute (3) Essential hypertension: Status: Acute (4) Hiatal hernia: Status: Acute (5) Glucose intolerance: Status: Acute (6) Benign prostatic hyperplasia: Status: Chronic (7) B-cell lymphoma: Status: Acute Assessment and plan: All associated labs and [facility]ologic studies [facility] I discussed placing a vascular access device with the pt and S.O./family, and the alternatives to the procedure. We discussed what the port would look like, and how to take care of the port at home and the limitations that it does impose on lifestyle. We discussed that is does need to be flushed monthly when not being actively used. We discussed how the tube is placed in surgery and how it is removed. We discussed daily maintenance and care. Care of the port was also reviewed in detailed. Risk of port placement include but are not limited to: Bleeding, infection, damage to vein, artery, nerve or lung, aspiration and pneumonia, respiratory distress or airway obstruction, complications of anesthesia. If pneumothorax occurs, may need to have a chest tube. The lines can become thrombosed and may need to be changed periodically. The pt was receive pre-op hydration and antibiotics. The patient should be off asa/NSAID/coumadin/Plavix/anticoagulants prior to the exam. -labs, CT, path and echo are in his [facility] chart (8) Encounter for insertion of venous access port: Status: Acute History of Present Illness Consults Consult date: 02/20/21 Narrative: The pt. is seen in consultation for central venous access placement at the request of PCP for venous access for chemo for B cell lymphoma. The lymphoma is confined to his Left lateral ankle PMHx, PSHx, social habits, medications, and allergies are all reviewed in [facility]. -No problems with anesthesia or local anesthesethics in the past. Prior broken collarbone: No Prior head/neck surgery: No Pt has had a central line in the past: No Pt currently is currently undergoing chemo/XRT: not started yet Pt has had previous central access catheter:no Pt is handed: right Line will be placed:left. Review of Systems All systems reviewed & are unremarkable except as noted in HPI and below PFSH Medical History Benign prostatic hyperplasia Diffuse large B cell lymphoma Heart burn Hyperlipidemia Hypertension TIA (transient ischemic attack) Urinary retention UTI (urinary tract infection) Surgical History Colonoscopy - IV Sedation excision of, parotid tumor/gland [id number]- [facility]; ALL BENIGN H/O cataract extraction (R) 10/14/17 (L) 10/01/17 [facility] SURGERY 10/18/14; [facility] S/P TURP (~10/19/18) transesophageal echo Family History Mother , AGE 86 Stroke Hypertension Diabetes a touch Father , AGE 39 No problems noted. Brother , AGE 77 Stroke Maternal Grandfather , age 80 No problems noted. Paternal Grandfather , age 80s No problems noted. Maternal Grandmother , age 90s No problems noted. Paternal Grandmother , age 90s No problems noted. Social History Smoking/Tobacco Use Status: Former Tobacco Use tobacco type: cigarettes Quit Date: 06/30/94 Tobacco: How many years used: 25 Second Hand Exposure: Yes Smoking risk assessment performed?: Yes Alcohol Intake: current Alcohol Intake frequency: holidays/special occasions only Alcohol type: wine Drug use: Never Substance use type: does not use Caregiver/Support person: Yes Household members: spouse Housing: apartment Do you need help understanding health information?: Never Pets and animals: Yes Pets and animals: cat(s) Do you think of yourself as: straight/heterosexual Current gender identity: male What is your relationship status?: How often do you talk on the phone with friends or family?: decline to answer How often do you get together with friends or relatives?: decline to answer How often do you attend muslim or jewish services?: decline to answer Do you belong to any clubs or organized social groups?: decline to answer Panel score (0-1 are the most socially isolated patients): 1 What type of physical activity do you participate in: walking and weight lifting Duration: 60-90 minutes/day Frequency: 5-6 times per week Venus/Jew: Shinto Special venus needs: No Seatbelt use: always Helmet use: Yes Helmet use: always Drive intox or ride w/intox school bus driver/custodian: No Do you feel safe at home: Yes Additional Social history: unable to assess privately Meds Allergies and Home Medications Allergies Allergy/AdvReac Type Severity Reaction Status Date / Time milk AdvReac Mild mucus Verified 02/19/21 13:14 Home Medications Medication Instructions Recorded Confirmed Type aspirin [Aspirin Low-Strength] 81 mg PO DAILY tab-cap 02/07/15 02/19/21 History pantoprazole 40 mg tablet,delayed 40 mg PO DAILY PRN #90 tab-cap 08/11/18 02/20/21 Rx release amlodipine 2.5 mg tablet 2.5 mg PO DAILY #90 tab-cap 05/23/20 02/20/21 Rx lisinopril 20 1 tab PO DAILY #90 tab-cap 05/23/20 02/20/21 Rx mg-hydrochlorothiazide 12.5 mg tablet metoprolol succinate 100 mg 100 mg PO DAILY #90 tab-cap 11/07/20 02/20/21 Rx tablet,extended release 24 hr simvastatin 40 mg tablet 40 mg PO DAILY #90 tab-cap 11/07/20 02/20/21 Rx Exam Const General: cooperative, healthy appearing, comfortable, no acute distress, well developed and well groomed Nutritional Appearance: average body habitus and well nourished Orientation: alert, awake and oriented x3 HENMT Head: normal to inspection, normocephalic and atraumatic Ears: hearing grossly normal bilaterally and external ears normal General nose exam: external nose normal Face and sinus: normal facial exam and sinuses nontender Mouth: oral mucosae normal, lip normal, tongue normal and moist mucous membranes Teeth and gingiva: dentition normal Eyes General: appearance normal, both eyes and all related structures Conjunctivae: conjunctivae normal Sclera: sclerae normal Pupils: PERRL Neck Neck: normal visual inspection and full ROM Chest Chest: normal inspection of the chest Resp Effort & Inspection: normal respiratory effort, able to speak in complete sentences, no cough, no nasal flaring, not tachypneic and no use of accessory muscles Auscultation: clear to auscultation bilaterally, no rales, no rhonchi and no wheezes Cardio Jugular venous pressure: no JVD Rate: regular rate Rhythm: regular rhythm GI Inspection: normal to inspection, no edema and non-distended Palpation: soft, no masses, nontender and No ascites Auscultation: normal bowel sounds Skin General skin exam: no rashes or lesions noted Trauma: no lacerations or abrasions Neuro General: patient alert, patient oriented x3, oriented, gait normal, moves all extremities, no focal motor deficits and CN's II-XI intact bilaterally Cognition: normal cognition Speech: speech normal Gait: normal gait Motor: muscle tone normal throughout Extrem General: normal to inspection and no clubbing, cyanosis or edema Other: wound is still weeping, not infected. 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
[2021-02-20] VITALS (13 sets, daily range): BP systolic 120–153; BP diastolic 41–84; PULSE 32–69; RESP 11–20; TEMP 36.1–36.4; O2SAT 95–100; BMI 21.2
--- NOTE | 2021-02-20 | DI.RAD_ITS ---
Exam(s) XR PORTABLE CHEST AP POST LINE EXAM: XR PORTABLE CHEST AP POST LINE CLINICAL HISTORY: s/p port TECHNIQUE: 2D digital imaging was performed. COMPARISON: RF LINE PLACEMENT OR from 02/20/2021 RF LINE PLACEMENT OR from 02/20/2021 FINDINGS: A port been inserted via the left subclavian. The tip of the catheter projects in the lower superior vena cava. LUNGS: Clear. No pleural abnormality seen. No pneumothorax. HEART: Normal. MEDIASTINUM: Normal. BONES: Unremarkable. IMPRESSION: Satisfactory placement of port. DATA REPOSITORY: RADIATION DOSE DELIVERED:
[2021-02-20] MEDS: Acetaminophen 500 MG TAB 1000 MG PO (09:29)
[2021-02-20] MEDS: Gabapentin 300 MG CAP PO (09:30)
--- NOTE | 2021-02-20 09:32 | W.ANESPRE ---
General Info Date of Service Date Performed: 02/20/21 Height: 6 ft Weight: 70.9 kg Body Mass Index (BMI): 21.2 Surgical Procedure: Operation Date: 02/20/21 09:55 Proposed Procedures Side Surgeon p Port-A-Cath Placement Jerrica Cadena, DO Meds Allergies and Home Medications Allergies Allergy/AdvReac Type Severity Reaction Status Date / Time milk AdvReac Mild mucus Verified 02/19/21 13:14 Home Medication Medication Instructions Recorded aspirin [Aspirin Low-Strength] 81 mg PO DAILY tab-cap 02/07/15 pantoprazole 40 mg tablet,delayed 40 mg PO DAILY PRN #90 tab-cap 08/11/18 release amlodipine 2.5 mg tablet 2.5 mg PO DAILY #90 tab-cap 05/23/20 lisinopril 20 1 tab PO DAILY #90 tab-cap 05/23/20 mg-hydrochlorothiazide 12.5 mg tablet metoprolol succinate 100 mg 100 mg PO DAILY #90 tab-cap 11/07/20 tablet,extended release 24 hr simvastatin 40 mg tablet 40 mg PO DAILY #90 tab-cap 11/07/20 Current Visit Medications: Current Medications Generic Name Dose Route Start Last Admin Trade Name Freq PRN Reason Stop Dose Admin Acetaminophen 1,000 mg 02/20/21 06:00 02/20/21 09:29 Acetaminophen 500 Mg Tab PO 03/21/21 23:59 1,000 mg PREOP NIGEL Administration Gabapentin 300 mg 02/20/21 06:00 02/20/21 09:30 Gabapentin 300 Mg Cap PO 03/21/21 23:59 300 mg PREOP NIGEL Administration Ringer's Solution 1,000 mls @ 80 mls/hr 02/20/21 06:00 IV 03/21/21 23:59 INFUSION NIGEL Cefazolin Sodium 1,000 mg/ 100 mls @ 200 mls/hr 02/20/21 09:10 Sodium Chloride IVPB 02/20/21 09:39 DIRECTED ONE IV Miscellaneous Supplies 1 each 02/20/21 06:00 Iv Access IV 03/21/21 23:59 DIRECTED NIGEL Sodium Chloride 0 ml 02/20/21 06:00 Normal Saline Flush 10 Ml Syr IV 03/21/21 23:59 PRN PRN Sodium Chloride 0 ml 02/20/21 06:00 Normal Saline 10 Ml Vial IJ 03/21/21 23:59 DIRECTED PRN Sterile Water 0 ml 02/20/21 06:00 Water,Injection,Sterile 10 Ml Vial IJ 03/21/21 23:59 DIRECTED PRN PFSH Active Problems Active Problems: Problem Status Onset Code Encounter for insertion of venous access port Z45.2 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 Atypical chest pain R07.89 GERD (gastroesophageal reflux disease) K21.9 Cerebral artery occlusion with cerebral infarction 02/02/15 I63.50 Duodenitis 07/10/15 K29.80 Elevated prostate specific antigen (PSA) 02/02/15 R97.20 Esophagitis K20.9 Essential hypertension 02/02/15 I10 Gastritis 07/10/15 K29.70 Hiatal hernia 07/10/15 K44.9 Hyperlipemia 02/02/15 E78.5 White coat syndrome with hypertension 09/20/15 I10 History of parotidectomy Z90.49 History of eye surgery Z98.890 Glucose intolerance E74.39 Urinary retention R33.9 Benign prostatic hyperplasia N40.0 Medical History Medical History Benign prostatic hyperplasia Diffuse large B cell lymphoma Heart burn Hyperlipidemia Hypertension TIA (transient ischemic attack) Urinary retention UTI (urinary tract infection) Surgical History Surgical History Colonoscopy - IV Sedation excision of, parotid tumor/gland [id number] [facility]; ALL BENIGN H/O cataract extraction (R) 10/14/17 (L) 10/01/17 [facility] [place] MAC[facility]ER SURGERY 10/18/14; [facility] TUR[facility] (~10/19/18) transesophageal echo Tobacco Smoking/Tobacco Use Status: Former Tobacco Use Tobacco: How many years used: 25 Passive smoking exposure: No Second hand exposure: Yes Alcohol Alcohol Intake: current Alcohol intake frequency: holidays/special occasions only Alcohol type: wine Substance Use Substance use: Never Substance use type: does not use Vital Signs and Lab Results Vital Signs Most Recent Vital Signs in EMR: Most Recent Vital Signs Temp Pulse Resp BP Pulse Ox 36.2 C L 62 16 153/62 H 95 02/20/21 09:10 02/20/21 09:10 02/20/21 09:10 02/20/21 09:10 02/20/21 09:10 Lab Results Blood Type / Crossmatch: No Data to Display Complete Blood Count: No Data to Display Complete Metabolic Panel: No Data to Display Liver Function Panel: No Data to Display Coagulation Panel: No Data to Display Cardiac Panel: No Data to Display Arterial Blood Gas: No Data to Display Venous Blood Gas: No Data to Display Pancreas Panel: No Data to Display Thyroid Panel: No Data to Display Infectious Disease: Coronavirus (COVID-19)(PCR) Negative (Negative) 02/19/21 08:27 02/19/21 Coronavirus 2019 Source Nasal/Nares 02/19/21 08:27 02/19/21 Blood Cultures: No Data to Display Toxicology Panel: No Data to Display Anesthesia Assessment and Plan Anesthesia History Personal History: No History of Anesthesia Complications Family History: No Family History of Anesthesia Complications Exercise Tolerance Exercise Tolerance: Metabolic Equivalents<4 Pertinent Negatives Pertinent Negatives: No Symptoms of GERD, No Major Cardiovascular Symptoms or Complaints and No Major Pulmonary Symptoms or Complaints Cardiac & Pulmonary Exam Cardiac Exam: Normal S1/S2 Heart Sounds Pulmonary Exam: Clear Bilateral Breath Sounds Airway Exam Known Difficult Airway: No Mallampati Class: 2 Mouth Opening: Normal (> 3cm) Thyromental Distance: Greater than 3 cm Neck Range of Motion: Full ROM Neck Circumference: Normal Teeth Condition: Normal Dentition and Removable Dentures/Plates Lower ASA Classification ASA Score: ASA 3 Emergency Case?: No NPO Status NPO Status: NPO Clears >2 hours, Solids >8 hours Anesthesia Plan Resuscitation Status: Full Code Anesthesia Technique: General Anesthesia Airway Planned: Natural Airway Monitors Used: Standard Monitors
[2021-02-20] MEDS: Lactated Ringers 1,000 ML 80 ML IV (09:46)
--- NOTE | 2021-02-20 10:21 | W.PM.DSUDISC ---
Discharge Plan Disposition Patient Disposition: HOME Condition: Stable Discharge Details Reason For Visit: Power port placement Attending Provider: Jerrica Cadena Primary Care Provider: Dejuan Henderson Home Meds and New Rx's Prescriptions: New tramadol [Ultram] 50 mg tablet 50 mg PO Q6H PRNQty: 7 RF: 0 Continued aspirin [Aspirin Low-Strength] 81 MG tablet,chewable 81 mg PO DAILY RF: 0 pantoprazole 40 mg tablet,delayed release (DR/EC) 40 mg PO DAILY PRN (Reason: gerd) Qty: 90 RF: 1 amlodipine 2.5 mg tablet 2.5 mg PO DAILY Qty: 90 RF: 3 lisinopril-hydrochlorothiazide 20-12.5 mg tablet 1 tab PO DAILY Qty: 90 RF: 3 metoprolol succinate 100 mg tablet extended release 24 hr 100 mg PO DAILY Qty: 90 RF: 4 simvastatin 40 mg tablet 40 mg PO DAILY Qty: 90 RF: 4 Discharge Instructions Additional Instructions: Wound Care Instruction Pain Control Use ice! Ice keeps the swelling down and swelling is what causes pain. Never apply ice directly to the skin. Wrap it in a towel or cloth. Apply ice 20 minutes on and 20 minutes off for pain control. Use as needed. Take Tylenol 500 mg by mouth with food every 4 hours as needed for pain. Or ibuprofen 600 mg by mouth with food every 6 hours as needed for pain. Do not take Tylenol if you have a history of heavy drinking, hepatitis C or liver problems. Do not take ibuprofen if you have a history of stomach ulcers/problems, bleeding problem or kidney issues. Take ibuprofen with food. -hold aspirin for a week. Do not take aspirin if you are taking ibuprofen. ?Caring for Your Incision Home care ? Always wash your hands before touching your incision. ? Keep the incision clean, dry, and out of water, keep the incision out of water. ? Do not to pick at the scabs. Scabs help protect the wound. ? You can take a shower in 24 hours and wash the incision with soap and water. Pat dry/don?t scrub. It?s OK to wash around the incision. But don?t spray water directly on it. ? Pat stitches dry if they get wet. Don't rub. ? Check the incision site daily for pain, redness, drainage, swelling, or separation of the incision edges. ? Make sure any clothing that touches the incision is loose-fitting. This will prevent rubbing. If the incision is on the head, keep your child from wearing caps or other head coverings. These may rub against the incision. As your incision heals, the skin may appear pink or red. It may also feel slightly bumpy or raised. This is called a healing ridge. Over time, the color should fade and the raised skin will become less noticeable. When to seek medical care Call your healthcare provider right away if you have any of these: ? More pain, redness, swelling, bleeding, or foul-smelling discharge around the incision area ? Fever of 101?F (38.3?C) or higher, or as directed by your child's healthcare provider ? Shaking chills ? Vomiting or nausea that doesn?t go away ? Numbness, coldness, or tingling around the incision area, or changes in skin color ? Opening of the sutures or wound -Stitches or rich that come apart or fall out or surgical tape falls off before 7 days, or as directed by your healthcare provider [facility]: [phone] -F/u w/ Dr. Henderson in 1 weeks time regarding low heart-rate -there are no stitches to remove. -F/u w/ infusion as directed. Activity:: no lifting over 5#'s left arm x 1 week Remove Dressings/Wound Care:: 24 hours Shower/Bathe:: 24 hours Diet:: As Tolerated Discharge Orders Discharge Orders: Discharge Order (Routine); Ordered 02/20/21 Ordered By: Jerrica Cadena DS: Diagnosis Discharge Diagnosis (1) GERD (gastroesophageal reflux disease): Status: Acute (2) Cerebral artery occlusion with cerebral infarction: Status: Acute (3) Essential hypertension: Status: Acute (4) Hiatal hernia: Status: Acute (5) Glucose intolerance: Status: Acute (6) Benign prostatic hyperplasia: Status: Chronic (7) B-cell lymphoma: Status: Acute (8) Encounter for insertion of venous access port: Status: Acute
--- NOTE | 2021-02-20 11:09 | DI.RAD_ITS ---
Exam(s) RF LINE PLACEMENT OR EXAM: RF LINE PLACEMENT OR CLINICAL HISTORY: PORT PLACEMENT. TECHNIQUE: 2D and realtime digital imaging was performed. CONTRAST MATERIAL: None COMPARISON: CR XR PORTABLE CHEST AP POST LINE from 02/20/2021 CR XR PORTABLE CHEST AP POST LINE from 02/20/2021 FINDINGS: Fluoroscopy was provided during Port-A-Cath placement. Limited C-arm image reveals distal tip of the left subclavian Port-A-Cath to be the lower SVC region. IMPRESSION: As above. Total fluoroscopy time 14.7 seconds RADIATION DOSE DELIVERED: sigifredo Leonard=1.77 mGy
[2021-02-20] MEDS: Bupivacaine 0.25% Pres-Free 30 ML VIAL (11:10)
[2021-02-20] MEDS: Normal Saline 50 ML 30 ML (11:22)
[2021-02-20] MEDS: Heparin 500 UNITS/5 ML SYRINGE (11:22)
--- NOTE | 2021-02-20 11:30 | RT.EKG_ITS ---
APPROVED REPORT Exam: Resting ECG Reason for Exam: bradyarryhthmia Patient Location: O HR:64 bpm ECG Measurements Heart Rate 64 AXIS TX 164 P 68 QRSd 91 QRS 1 QT 421 T 26 QTc 434 Conclusion Sinus rhythm...normal P axis, V-rate 60- 99 Ventricular bigeminy...bigeminy string>4 w/ V complexes Low voltage, extremity leads...all extremity leads <0.5mV
--- NOTE | 2021-02-20 11:48 | ROE_ITS ---
Date of service: 02/20/21 Time of Service: 11:49 Operative Note Operative Note DATE OF PROCEDURE: 02/20/21 PRE-OP DIAGNOSIS: lymphoma PROCEDURE: left subclavian power port SURGEON: Jerrica Cadena ANESTHESIA TYPE: Local By Surgeon and General:No Airway Refer to Anesthesia Record ESTIMATED BLOOD LOSS: 5 COMPLICATIONS: None Patient was transported to: PACU Patient's condition: stable Implants: Power port Procedure Description: CONSENT: Indications, risks, and benefits were explained at length. Informed consent is obtained from the patient explaining the risk, benefits and alternatives to the procedure including but not limited to: bleeding/infection/ PTX/damage to vein/artery/nerve (requiring further surgery), reaction to anesthesia, thrombosis or infection requiring removal, scarring, and other untold complications PROCEDURE SUMMARY: The patient is brought to the operative suite, and placed in the supine position. The patient is prepped and draped in the usual sterile fashion. She did receive preOp antibiotic. A time out was performed. The patient was placed in Trendelenburg position. The left chest region was prepped using chlorhexidine scrub and draped in sterile fashion using a full drape and sterile probe cover employed. Anesthesia was achieved with 30cc 1% lidocaine. The introducer needle was inserted ap proximately two centimeters lateral to and 1 cm inferior to the normal curvature of the patient's clavicle. Venous blood was withdrawn. The syringe was removed and a guidewire was advanced into the introducer needle. A small incision was made at the skin surface with a scalpel and the introducer needle was exchanged for a dilator and sheath over the guidewire. Proper positioning was ensured w/ fluoroscopy. After appropriate dilation was obtained, the dilator and guidewire are exchanged over the wire for a power port catheter. The dilator and guidewire are removed. Proper positioning is again assured by fluoroscopy. The tear away sheath is than removed. The incision is than extended w/ a #12 blade to create a 1? incision that encompasses the catheter. I subcutaneous pocket is created using Metzenbaum scissors. Electrocautery is used to provide hemostasis. The catheter is attached to the hub and secured. The hub is sewn to the anterior chest wall using 2-0 prolene. There is no bleeding at the time of closure. The pocket is irrigated. The catheter is accessed. There is dark red venous return of blood. The catheter is flushed w/ heparinized saline per protocol. The incision is closed with 2-0 moncryl in two layers. Skin glue was applied. The patient tolerated the procedure without any hemodynamic compromise. Post- procedure chest x-ray is pending at this time. The patient tolerated the procedure well without complication and transferred to the recovery room in stable condition.
[2021-02-20 12:44] LABS: BUN 27 mg/dL (7-18); CREATININE 1.4 mg/dL (0.70-1.30); Calcium 8.9 mg/dL (8.5-10.1); Chloride 107 mmol/L (98-107); Estimated GFR 49.14 (mL/min/1.73m2); Glucose 82 mg/dL (74-106); Potassium 4.6 mmol/L (3.5-5.1); Sodium 143 mmol/L (136-145)
[2021-02-20 12:52] LABS: Troponin I < 0.05 ng/mL (<0.06)
--- NOTE | 2021-02-20 13:22 | W.ANESPOSTOP ---
Postoperative Evaluation Date, Time and Location Date Performed: 02/20/21 Time Performed: 13:22 Patient Location: Day Surgery Unit Vital Signs Most Recent Imported Vital Signs: Most Recent Vital Signs Temp Pulse Resp BP Pulse Ox 36.4 C L 66 11 L 143/50 H 100 02/20/21 13:00 02/20/21 13:00 02/20/21 13:00 02/20/21 13:00 02/20/21 13:00 Pain Score Most Recent Pain Score: Most Recent Pain Score Pain Level 0 02/20/21 13:00 Assessment Mental Status: Awake (Alert & Oriented to Patient Baseline) Airway and Respiratory Function: Patent airway with normal (patient baseline) respiratory exam Cardiovascular Function: Hemodynamically Stable Hydration Status: Adequately Hydrated Nausea & Vomiting: No Nausea or Vomiting Pain: Pt. Denies Any Pain Peripheral Nerve Block: Patient did not receive a nerve block Postoperative Comments:: spoke with Dr. Dejuan Henderson by phone regarding pts. pulse rate.Pt remains asymptomatic. Pt states that he has been known to have pulse rate as low as 40 without sx's
== END 2021-02-20 15:25 | disposition home or self-care (01) ==
PROVIDERS: PCP Family Medicine; Visit Provider Surgery
PROC: (CPT 36561; principal; 2021-02-20 09:45)
DX: C85.15 Unspecified B-cell lymphoma, lymph nodes of inguinal region and lower limb (principal); I10 Essential (primary) hypertension; E78.5 Hyperlipidemia, unspecified
CPT/HCPCS: 36561; 36415; 71045; 77001; 80048; 83735; 84484; 93005; 93010; C1788; J0690; J2001; J2250

== ENCOUNTER 2021-03-02 14:53 | Outpatient (RCR) | payer MEDICARE, OTHER, SELFPAY ==
--- NOTE | 2021-03-02 16:30 | HOLTER_ITS ---
APPROVED REPORT Conclusion This was a 48-hour Holter monitor reportedly ordered for arrhythmia Rhythm throughout was sinus. Average heart rate was 62, minimum 50, maximum 93 There were rare atrial premature beats. There was no atrial fibrillation There were moderately frequent ventricular ectopic beats comprising 1% of total beats. There were fr equent episodes of bigeminy and trigeminy, rare ventricular triplets. Accelerated idioventricular rh ythm was seen predominantly during sleep No patient symptoms were reported There were no pauses greater than 3 seconds
== END 2021-03-29 23:59 | disposition home or self-care (01) ==
LOC: RT 14:53
PROVIDERS: PCP Family Medicine; Visit Provider Family Medicine
DX: I49.8 Other specified cardiac arrhythmias (principal); I49.3 Ventricular premature depolarization; R00.8 Other abnormalities of heart beat
CPT/HCPCS: 93227; 93225; 93226

== ENCOUNTER 2021-03-09 12:26 | Outpatient (CLI) | payer MEDICARE, OTHER, SELFPAY ==
--- NOTE | 2021-03-09 12:15 | RT.EKG_ITS ---
APPROVED REPORT Exam: Resting ECG Reason for Exam: bradycardia Patient Location: O HR:77 bpm ECG Measurements Heart Rate 77 AXIS GA 164 P 49 QRSd 85 QRS -7 QT 405 T 17 QTc 459 Conclusion Sinus rhythm...normal P axis, V-rate 50- 99 Ventricular bigeminy...bigeminy string>4 w/ V complexes Borderline low voltage, extremity leads...all extremity leads <0.6mV Otherwise unremarkable
== END 2021-03-09 12:27 | disposition home or self-care (01) ==
LOC: DI.CARD 12:27
PROVIDERS: PCP Family Medicine; Visit Provider Internal Medicine Cardiovascular Disease
DX: I49.3 Ventricular premature depolarization (principal); R00.1 Bradycardia, unspecified; R07.89 Other chest pain
CPT/HCPCS: 93010

== ENCOUNTER → 2021-03-09 13:52 | Outpatient (BNVA) | payer MEDICARE, OTHER, SELFPAY | PROVIDERS: PCP Family Medicine; Referring Provider Family Medicine; Visit Provider Internal Medicine Cardiovascular Disease | DX: I49.3 Ventricular premature depolarization (principal); C85.10 Unspecified B-cell lymphoma, unspecified site; I10 Essential (primary) hypertension; E78.5 Hyperlipidemia, unspecified | CPT/HCPCS: 93005; 99203; 99214 ==

== ENCOUNTER 2021-03-23 05:19 | Outpatient (RCR) | payer MEDICARE, OTHER, SELFPAY ==
[2021-03-13] MEDS: Heparin 500 UNITS/5 ML SYRINGE IV (14:28)
[2021-03-13] MEDS: Normal Saline Flush 10 ML SYR IVP (14:28)
[2021-03-13 14:39] LABS: Abs Immature Grans 0.02 10^3/uL (0.0-0.06); Absolute Basophil Count 0.05 10^3/uL (0.0-0.2); Absolute Eosinophil Count 0.23 10^3/uL (0.0-0.7); Absolute Lymphocyte Count 1.36 10^3/uL (1.2-3.4); Absolute Monocyte Count 0.59 10^3/uL (0.1-0.8); Absolute Neutrophil Count 3.56 10^3/uL (1.2-6.7); Basophils % 0.9; HCT 46.8 % (40.0-50.0); Immature Grans % 0.3; Lymphocytes % 23.4; MCH 29.2 pg (27.0-33.0); MCHC 32.1 % (32.0-36.0); MCV 91.1 fL (80-95); MPV 11.8 fL (8.0-11.0); Monocytes % 10.2; Neutrophils % 61.2; Nucleated RBC 0 %; Platelet Count 124 10^3/uL (130-400); RBC 5.14 10^6/uL (4.36-5.78); RDW 13.2 % (11.8-14.1); RDW-SD 44.7 fL; WBC 5.81 10^3/uL (4.4-10.8)
[2021-03-13 14:49] LABS: ALT 28 U/L (16-63); AST 19 U/L (15-37); Albumin 3.9 g/dL (3.4-5.0); Alkaline Phosphatase 53 U/L (46-116); Anion Gap 6.6 mmol/L (3-11); BUN 26 mg/dL (7-18); CO2 28.4 mmol/L (21.0-32.0); CREATININE 1.1 mg/dL (0.70-1.30); Calcium 8.9 mg/dL (8.5-10.1); Chloride 104 mmol/L (98-107); Glucose 97 mg/dL (74-106); LDH 187 U/L (85-227); Potassium 3.9 mmol/L (3.5-5.1); Sodium 139 mmol/L (136-145); Total Protein 7.2 g/dL (6.4-8.2)
[2021-03-20] MEDS: Normal Saline Flush 10 ML SYR IVP (10:09)
[2021-03-20] MEDS: Heparin 500 UNITS/5 ML SYRINGE IV (10:09)
[2021-03-20 10:47] LABS: HCT 43.2 % (40.0-50.0); HGB 14.1 g/dL (13.5-17.5); MCH 29.6 pg (27.0-33.0); MCHC 32.6 % (32.0-36.0); MCV 90.8 fL (80-95); Nucleated RBC 0 %; Platelet Count 60 10^3/uL (130-400); RBC 4.76 10^6/uL (4.36-5.78); RDW-SD 43.4 fL
[2021-03-20 10:53] LABS: WBC 1.39 10^3/uL (4.4-10.8)
[2021-03-20 11:08] LABS: Absolute Eosinophil Count 0.13 10^3/uL (0.0-0.7); Absolute Lymphocyte Count 0.58 10^3/uL (1.2-3.4); Absolute Monocyte Count 0.01 10^3/uL (0.1-0.8); Absolute Neutrophil Count 0.67 10^3/uL (1.2-6.7); Atypical Lymphocytes % 1; Bands % 5; Diff Comment Manual Differential
[2021-03-20 11:09] LABS: RBC Morphology Normal
[2021-03-20 11:20] LABS: ALT 64 U/L (16-63); AST 18 U/L (15-37); Albumin 3.4 g/dL (3.4-5.0); Alkaline Phosphatase 56 U/L (46-116); Anion Gap 8.9 mmol/L (3-11); BUN 32 mg/dL (7-18); Bilirubin, Total 1.5 mg/dL (0.2-1.0); CO2 32.1 mmol/L (21.0-32.0); Calcium 8.5 mg/dL (8.5-10.1); Chloride 105 mmol/L (98-107); Glucose 142 mg/dL (74-106); LDH 184 U/L (85-227); Potassium 3.3 mmol/L (3.5-5.1); Sodium 146 mmol/L (136-145); Total Protein 6.2 g/dL (6.4-8.2)
[2021-03-23] MEDS: Heparin 500 UNITS/5 ML SYRINGE IV (09:05)
[2021-03-23] MEDS: Normal Saline Flush 10 ML SYR IVP (09:05)
[2021-03-23 09:06] LABS: HCT 42.3 % (40.0-50.0); HGB 13.6 g/dL (13.5-17.5); MCH 29.4 pg (27.0-33.0); MCHC 32.2 % (32.0-36.0); MCV 91.6 fL (80-95); Nucleated RBC 0 %; RBC 4.62 10^6/uL (4.36-5.78); RDW 13.1 % (11.8-14.1); RDW-SD 43.9 fL; WBC 3.25 10^3/uL (4.4-10.8)
[2021-03-23 09:17] LABS: Platelet Count 66 10^3/uL (130-400)
[2021-03-23 09:18] LABS: Absolute Eosinophil Count 0.23 10^3/uL (0.0-0.7); Absolute Lymphocyte Count 0.49 10^3/uL (1.2-3.4); Absolute Monocyte Count 0.29 10^3/uL (0.1-0.8); Absolute Neutrophil Count 2.18 10^3/uL (1.2-6.7); Atypical Lymphocytes % 1; Bands % 2; Diff Comment Manual Differential; Metamyelocytes % 2; RBC Morphology Normal
== END 2021-03-29 23:59 | disposition home or self-care (01) ==
LOC: INF 05:19
PROVIDERS: PCP Family Medicine; Visit Provider Internal Medicine Hematology & Oncology
DX: C85.90 Non-Hodgkin lymphoma, unspecified, unspecified site (principal); Z45.2 Encounter for adjustment and management of vascular access device
CPT/HCPCS: 36591; 80053; 83615; 85025

== ENCOUNTER 2021-04-03 02:48 | Outpatient (RCR) | payer MEDICARE, OTHER, SELFPAY ==
[2021-04-03] MEDS: Normal Saline Flush 10 ML SYR IVP (14:00)
[2021-04-03] MEDS: Heparin 500 UNITS/5 ML SYRINGE IV (14:01)
[2021-04-03 14:21] LABS: Abs Immature Grans 0.13 10^3/uL (0.0-0.06); Absolute Basophil Count 0.09 10^3/uL (0.0-0.2); Absolute Lymphocyte Count 0.82 10^3/uL (1.2-3.4); Absolute Monocyte Count 0.91 10^3/uL (0.1-0.8); Absolute Neutrophil Count 6.05 10^3/uL (1.2-6.7); Basophils % 1.1; Eosinophils % 1.2; HCT 40.9 % (40.0-50.0); HGB 13.1 g/dL (13.5-17.5); Immature Grans % 1.6; Lymphocytes % 10.1; MCV 90.7 fL (80-95); MPV 10.6 fL (8.0-11.0); Monocytes % 11.2; Neutrophils % 74.8; Nucleated RBC 0 %; Platelet Count 332 10^3/uL (130-400); RBC 4.51 10^6/uL (4.36-5.78); RDW 13.4 % (11.8-14.1); RDW-SD 44.8 fL
[2021-04-03 14:32] LABS: ALT 33 U/L (16-63); AST 25 U/L (15-37); Albumin 3.1 g/dL (3.4-5.0); Alkaline Phosphatase 52 U/L (46-116); Anion Gap 4.8 mmol/L (3-11); BUN 30 mg/dL (7-18); Bilirubin, Total 0.5 mg/dL (0.2-1.0); CO2 31.2 mmol/L (21.0-32.0); CREATININE 1.1 mg/dL (0.70-1.30); Chloride 104 mmol/L (98-107); Glucose 102 mg/dL (74-106); LDH 223 U/L (85-227); Potassium 3.7 mmol/L (3.5-5.1); Sodium 140 mmol/L (136-145); Total Protein 6.8 g/dL (6.4-8.2)
== END 2021-04-29 23:59 | disposition home or self-care (01) ==
LOC: INF 02:48
PROVIDERS: PCP Family Medicine; Visit Provider Internal Medicine Hematology & Oncology
DX: C85.90 Non-Hodgkin lymphoma, unspecified, unspecified site (principal); Z45.2 Encounter for adjustment and management of vascular access device
CPT/HCPCS: 36591; 80053; 83615; 85025

== ENCOUNTER 2021-04-14 20:16 | Inpatient (IN) | payer MEDICARE, OTHER, SELFPAY ==
[2021-04-14] VITALS (25 sets, daily range): BP systolic 134–184; BP diastolic 62–78; PULSE 68–99; RESP 16–30; TEMP 37.2–38.4; O2SAT 86–96
--- NOTE | 2021-04-14 20:18 | W.ED.GENAD ---
Discharge Plan Disposition Patient Disposition: [facility] INPATIENT Condition: Fair Discharge Details Clinical Impression: Primary atypical interstitial pneumonia, Hypoxemia Primary Care Provider: Dejuan Henderson ED Provider: Edward Moulton [place] Meds and New Rx's Prescriptions: No Action aspirin [Aspirin Low-Strength] 81 MG tablet,chewable 81 mg PO HS RF: 0 pantoprazole 40 mg tablet,delayed release (DR/EC) 40 mg PO DAILY PRN (Reason: gerd) Qty: 90 RF: 1 prednisone 20 mg tablet See Rx Instructions .ROUTE .COMPLEX RF: 0 prochlorperazine maleate 10 mg tablet 10 mg PO PRN PRNRF: 0 acyclovir 400 mg tablet 400 mg PO BID RF: 0 Neulasta 6 mg/0.6 mL Syringe See Rx Instructions .ROUTE .COMPLEX RF: 0 loratadine [Claritin] 10 mg Tablet 10 mg PO PRN PRNRF: 0 Colace 50 mg Capsule PO RF: 0 lisinopril-hydrochlorothiazide 20-12.5 mg tablet 1 tab PO HS RF: 0 metoprolol succinate 100 mg tablet extended release 24 hr 100 mg PO HS RF: 0 amlodipine 2.5 mg tablet 2.5 mg PO HS RF: 0 simvastatin 40 mg tablet 40 mg PO HS RF: 0 tramadol [Ultram] 50 mg tablet 50 mg PO Q6H PRNQty: 7 RF: 0 Medical Decision Making Elderly gentleman on chemotherapy for B-cell lymphoma presenting with recurrent fever. Discharged from [facility] yesterday after admission for neutropenic fever. Negative work-up and negative Covid testing then. Currently not on antibiotics. Other than postnasal drip no other complaints. He looks well. Physical exam reveals no obvious source of infection. IV and cultures obtained. Repeat CBC and BMP sent. Urinalysis and Covid testing done. Patient white count is now normal with normal ANC. BMP unremarkable. Urinalysis negative. Covid negative. Patient initial saturations were fine. Subsequently, found to have saturations in the eighties with good waveform. He otherwise continues to feel well without complaint. Given history of recent hospitalization despite DVT prophylaxis in the hospital, active cancer, low saturation will obtain CTA of chest. CTA chest negative for PE. Bilateral basilar interstitial infiltrates noted. Eventually records from [place] obtained. Respiratory panel was completely negative including for mycoplasma. He did have CT scan which showed similar findings to tonight. As best I can tell he was never hypoxic. He was treated with IV Zosyn. He was discharged on Levaquin. Here he continues to have episodes of pulse oximetry down to the high eighties when off oxygen. Discussed with patient and options. Discussed with hospitalist. Will admit for observation overnight with incentive spirometry, Zithromax, oxygen as needed. Medical Records Medical records reviewed: Yes I reviewed the patient's medical records. Lab Data Lab results reviewed: Yes I reviewed the patient's lab results. HPI General Mode of arrival: ambulatory. Date/Time Provider Initiated Documentation: 04/14/21 20:18. Limitations to Documentation: no limitations. Information obtained by: patient, RN notes reviewed and old records reviewed. HPI Narrative: Patient presents to ED with fever. Patient just discharged from [facility] yesterday after admission for febrile neutropenia. Patient last received chemotherapy April 04. He is being treated for B-cell lymphoma. Other than postnasal drip and congestion denies having any other symptoms. He specifically denies headache, cough, chest pain, shortness of breath, abdominal pain, vomiting, diarrhea, urinary symptoms, pain at his port site. contacted oncology at [facility] and patient referred back into emergency department. Related Data Home Medications Medication Instructions Recorded Confirmed aspirin [Aspirin Low-Strength] 81 mg PO HS tab-cap 02/07/15 04/14/21 pantoprazole 40 mg tablet,delayed 40 mg PO DAILY PRN #90 tab-cap 08/11/18 04/14/21 release tramadol [Ultram] 50 mg PO Q6H PRN #7 tab 02/20/21 04/14/21 acyclovir 400 mg PO BID 04/14/21 04/14/21 amlodipine 2.5 mg PO HS 04/14/21 04/14/21 docusate sodium [Colace] PO 04/14/21 lisinopril-hydrochlorothiazide 1 tab PO HS 04/14/21 04/14/21 loratadine [Claritin] 10 mg PO PRN PRN 04/14/21 04/14/21 metoprolol succinate 100 mg PO HS 04/14/21 04/14/21 pegfilgrastim [Neulasta] See Rx Instructions .ROUTE .COMPLEX 04/14/21 04/14/21 prednisone See Rx Instructions .ROUTE .COMPLEX 04/14/21 04/14/21 prochlorperazine maleate 10 mg PO PRN PRN 04/14/21 04/14/21 simvastatin 40 mg PO HS 04/14/21 04/14/21 Previous Rx's Medication Instructions Recorded pantoprazole 40 mg tablet,delayed 40 mg PO DAILY PRN #90 tab-cap 08/11/18 release tramadol [Ultram] 50 mg PO Q6H PRN #7 tab 02/20/21 Allergies Allergy/AdvReac Type Severity Reaction Status Date / Time milk AdvReac Mild mucus Verified 04/14/21 20:38 General RUSS: 3 Review of Systems Narrative: 04/12 Review of Systems completed and is negative except as stated above in HPI (Systems reviewed: Const, Eyes, ENT, Resp, CV, GI, , MSK, Skin, Neuro) PFSH Medical History Benign prostatic hyperplasia Diffuse large B cell lymphoma Heart burn Hyperlipidemia Hypertension Premature ventricular contractions TIA (transient ischemic attack) Urinary retention UTI (urinary tract infection) Surgical History Colonoscopy - IV Sedation excision of, parotid tumor/gland [id number] [facility]; ALL BENIGN H/O cataract extraction (R) 10/14/17 (L) 10/01/17 [facility] [place] MACULAR PUCKER SURGERY 10/18/14; [facility] TURP (~10/19/18) transesophageal echo Family History Mother , AGE 86 Stroke Hypertension Diabetes a touch Father , AGE 39 No problems noted. Brother , AGE 77 Stroke Maternal Grandfather , age 80 No problems noted. Paternal Grandfather , age 80s No problems noted. Maternal Grandmother , age 90s No problems noted. Paternal Grandmother , age 90s No problems noted. Social History Smoking/Tobacco Use Status: Former Tobacco Use tobacco type: cigarettes Quit Date: 06/30/94 Tobacco: How many years used: 25 Second Hand Exposure: Yes Smoking risk assessment performed?: Yes Alcohol Intake: never Drug use: Never Substance use type: does not use Caregiver/Support person: Yes Household members: spouse Housing: apartment Do you need help understanding health information?: Never Pets and animals: Yes Pets and animals: cat(s) Do you think of yourself as: straight/heterosexual Current gender identity: male What is your relationship status?: How often do you talk on the phone with friends or family?: decline to answer How often do you get together with friends or relatives?: decline to answer How often do you attend hoahaoism or denominational services?: decline to answer Do you belong to any clubs or organized social groups?: decline to answer Panel score (0-1 are the most socially isolated patients): 1 What type of physical activity do you participate in: walking and weight lifting Duration: 60-90 minutes/day Frequency: 5-6 times per week Venus/Denominational: Protestant Special venus needs: No Seatbelt use: always Helmet use: Yes Helmet use: always Drive intox or ride w/intox bellman driver: No Do you feel safe at home: Yes Additional Social history: unable to assess privately Exam Narrative Exam Narrative: Const: WDWN elderly male in NAD. HEENT: NC/AT. Normal facial exam. Eyes: Normal conjunctiva and sclera. Neck: Supple. Trachea midline. Lungs: Normal respiratory effort. Lungs are clear. Port site non-tender in the left upper chest. Cor: RRR without murmur/gallop. Good radial pulses. GI: Soft. NT/ND. No guarding or rebound. Neuro: A+O x 3. Normal speech, mentation, gait. Cranial nerves II - XII grossly intact. No gross motor or sensory deficit. Ext: No C/C/E. No calf tenderness. Skin: Warm and dry without rash/erythema.
[2021-04-14 20:56] LABS: Source Nasal/Nares
[2021-04-14 21:01] LABS: HCT 36.1 % (40.0-50.0); HGB 11.6 g/dL (13.5-17.5); MCH 29.1 pg (27.0-33.0); MCHC 32.1 % (32.0-36.0); MCV 90.7 fL (80-95); MPV 11.8 fL (8.0-11.0); Nucleated RBC 0 %; RBC 3.98 10^6/uL (4.36-5.78); RDW 13.5 % (11.8-14.1); RDW-SD 44.2 fL; WBC 4.48 10^3/uL (4.4-10.8)
[2021-04-14 21:03] LABS: Anion Gap 7.7 mmol/L (3-11); BUN 15 mg/dL (7-18); CO2 30.3 mmol/L (21.0-32.0); CREATININE 1.2 mg/dL (0.70-1.30); Calcium 8.6 mg/dL (8.5-10.1); Chloride 101 mmol/L (98-107); Estimated GFR 58.71 (mL/min/1.73m2); Glucose 114 mg/dL (74-106); Potassium 3.5 mmol/L (3.5-5.1); Sodium 139 mmol/L (136-145)
[2021-04-14 21:19] LABS: Platelet Count 94 10^3/uL (130-400)
[2021-04-14] MEDS: Normal Saline 1,000 ML 150 ML IV (21:19)
[2021-04-14 21:20] LABS: Absolute Basophil Count 0.04 10^3/uL (0.0-0.2); Absolute Eosinophil Count 0.04 10^3/uL (0.0-0.7); Absolute Lymphocyte Count 0.22 10^3/uL (1.2-3.4); Absolute Monocyte Count 0.27 10^3/uL (0.1-0.8); Absolute Neutrophil Count 3.67 10^3/uL (1.2-6.7); Metamyelocytes % 4; Myelocytes % 1
[2021-04-14 21:22] LABS: Diff Comment Manual Differential; RBC Morphology Normal
[2021-04-14 21:44] LABS: Bilirubin Negative (Negative); Blood Trace-intact (Negative); Clarity Clear (Clear); Glucose Negative (Negative); Ketones Negative (Negative); Leukocyte Esterase Negative (Negative); Nitrite Negative (Negative); Specific Gravity 1.025 (1.005-1.025)
--- NOTE | 2021-04-14 21:45 | DI.CT_ITS ---
Exam(s) CT CHEST PE CTA EXAM: CT CHEST PE CTA CLINICAL HISTORY: low oxygen saturation/fever/B cell Lymphoma. TECHNIQUE: Imaging Protocol: Axial CT angiography was performed with multi-slice acquisition and mu lti-planar and/or 3D reconstructions. CONTRAST MATERIAL: Intravenous: Omnipaque 350 Contrast volume:100 mL COMPARISON: CT CHEST/ABD WO from 05/11/2015 CT CHEST/ABD WO from 05/11/2015 FINDINGS: Tracheobronchial tree: Patent where visualized. Pulmonary parenchyma: There are scattered ground-glass opacities in the lungs particularly the upper lobes. Dependent areas of consolidation are seen in the lower lobes bilaterally. There are calcified granulomas present. Pulmonary Arteries: No evidence of filling defect to suggest pulmonary emboli. Mediastinum and An: No dominant adenopathy or fluid collection. There is a stable 2.4 x 3.8 cm soft tissue mass in the mediastinum adjacent to the pulmonary artery. It is unchanged dating back to 04/30 and likely benign. Visualized thyroid gland: Unremarkable. Pleura: Small bilateral pleural effusions, left greater than right. No pneumothorax. Heart: The heart is not dilated. Coronary artery calcifications. No pericardial effusion. Aorta: Thoracic aorta non-dilated. No evidence of dissection. Atherosclerosis. Upper abdomen: Hiatal hernia. 1.4 cm cyst in the superior pole of the right kidney. Soft tissues: Unremarkable. Bones: Within normal limits for the patient's age. IMPRESSION: 1. No evidence of pulmonary embolism, thoracic aortic dissection or aneurysm. 2. Bilateral ground-glass opacities in the lung possibly reflecting an atypical infectious process. 3. Small bilateral pleural effusions, left greater than right with small subjacent infiltrate which m ay represent atelectasis. Pneumonia cannot be excluded. RADIATION DOSE DELIVERED: 427.47mGy.cm Total DLP DATA REPOSITORY: All CT scans at this facility are submitted to the National Radiology Data Registry (NRDR) Dose Index Registry (DIR) with the [employer] (ACR). RADIATION OPTIMIZATION: All CT scans at this facility use at least one of these dose optimization te chniques: automated exposure control; mA and/or kV adjustment per patient size (includes targeted exa ms where dose is matched to clinical indication); or iterative reconstruction.
[2021-04-14 21:54] LABS: COVID-19 PCR Negative (Negative)
[2021-04-14 21:55] LABS: Epithelial Cells Rare HPF (Negative); Other Cells Negative (Negative)
[2021-04-14 21:56] LABS: Bacteria Few HPF (Negative); C & S Indicated? No; Casts Negative LPF (Negative); Crystals Negative HPF (Negative); Mucus Trace (Negative)
[2021-04-14] MEDS: Acetaminophen 500 MG TAB (21:56)
[2021-04-14] MEDS: Omnipaque 350 MG/ML 100 ML BTL IJ (22:10)
[2021-04-14] MEDS: Normal Saline - Diluent 50 ML VIAL IV (22:11)
--- NOTE | 2021-04-14 23:05 | DI.VRAD_ITS ---
PROCEDURE INFORMATION: Exam: CTA Chest With Contrast Exam date and time: 04/14/2021 9:48 PM Age: 75 years old Clinical indication: Patient HX: Low oxygen saturation, fever, b cell lymphoma TECHNIQUE: Imaging protocol: Computed tomographic angiography of the chest with contrast. 3D rendering (Not supervised by radiologist): MIP and/or 3D reconstructed images were created by the technologist. COMPARISON: CT CHEST/ABD WO 05/11/2015 8:28 PM FINDINGS: Pulmonary arteries: Normal. No pulmonary emboli. Aorta: Unremarkable. No aortic aneurysm. No aortic dissection. Lungs: Unremarkable. No consolidation. No masses. Pleural spaces: Tiny left pleural effusions. Heart: Unremarkable. No cardiomegaly. No pericardial effusion. Mediastinal space: Persistent nodular soft tissue density abutting the left anterior mid mediastinum along the main pulmonary artery, unchanged since previous study and likely benign Lymph nodes: Unremarkable. No enlarged lymph nodes. Diaphragm: Small hiatal hernia. Bones/joints: Unremarkable. No acute fracture. Soft tissues: Unremarkable. Other findings: Minimal nonspecific bilateral ground-glass opacities, possibly of atypical infectious etiology in the setting of fever. IMPRESSION: Minimal nonspecific bilateral ground-glass opacities, possibly of atypical infectious etiology in the setting of fever. Dictated and Authenticated by: Donnell Carcamo MD. Ordering:VAHID Leon MD
[2021-04-14] MEDS: AZITHROMYCIN 500 MG in Normal Saline 250 ML 250 MG IVPB (23:39)
[2021-04-15] VITALS (16 sets, daily range): BP systolic 143–183; BP diastolic 61–83; PULSE 20–85; RESP 18–22; TEMP 35.7–39; O2SAT 83–96
--- NOTE | 2021-04-15 00:07 | W.PM.HP.N ---
Date of service: 04/15/21 Time of Service: 00:21 Assessment and Plan Assessment and plan (1) Pneumonia: Start date: 04/15/21 Status: Acute Assessment and plan: This is a 75-year-old recently hospitalized at [facility] for neutropenic fever treated with Zosyn and discharged on Levaquin. He presents with atypical appearing imaging of his chest and will be placed on Zithromax IV for atypical pneumonia. He has hypoxemia which is not his baseline. During his hospital stay he will be weaned off oxygen if possible with supportive care. He is a full code despite his new diagnosis of B-cell lymphoma and recurrent decompensation with treatment. Qualifiers: Laterality: bilateral Lung location: unspecified part of lung Pneumonia type: due to unspecified organism Qualified Code(s): J18.9 - Pneumonia, unspecified organism (2) Hypoxemia: Start date: 04/15/21 Status: Acute Assessment and plan: Continue oxygen supplementation and assess for oxygen needs before discharge. Patient is not positive for Covid. Is imaging does not show significant infiltrate and he may have underlying chronic lung disease though this not evident on CT. (3) B-cell lymphoma: Status: Chronic Assessment and plan: Patient is having ongoing chemotherapy with complications of neutropenia with recent hospitalization for neutropenic fever and WBC adequate during this hospital stay status post Neulasta. Continue to follow with oncology. 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 Patient last received chemotherapy April 04. He is being treated for B-cell lymphoma. Other than postnasal drip and congestion denies having any other symptoms. He specifically denies headache, cough, chest pain, shortness of breath, abdominal pain, vomiting, diarrhea, urinary symptoms, pain at his port site. contacted oncology at [facility] and patient referred back into emergency department. Patient did have recurrent fever which prompted his ED visit. Patient has had positive x-ray findings of the chest with viral pattern and multiple tests for Covid which were negative along with respiratory pathogen screen which were all negative. He was treated with Zosyn and his previous hospitalization and discharged on Levaquin. In the ED the patient was found to have atypical pneumonia and was placed on a Zithromax. He did have need for oxygen supplement. Patient had no other complaints at the time of my exam. He appears fatigued from having a sleepless night. Review of Systems Narrative: 13 point review of systems otherwise unrevealing or stable. [facility] Medical History Benign prostatic hyperplasia Diffuse large B cell lymphoma Heart burn Hyperlipidemia Hypertension Premature ventricular contractions TIA (transient ischemic attack) Urinary retention UTI (urinary tract infection) Surgical History Colonoscopy - IV Sedation excision of, parotid tumor/gland [id number]- [facility]; ALL BENIGN H/O cataract extraction (R) 10/14/17 (L) 10/01/17 [facility] [place] MAC[facility]ER SURGERY 10/18/14; [facility] S/P TURP (~10/19/18) transesophageal echo Family History Mother , AGE 86 Stroke Hypertension Diabetes a touch Father , AGE 39 No problems noted. Brother , AGE 77 Stroke Maternal Grandfather , age 80 No problems noted. Paternal Grandfather , age 80s No problems noted. Maternal Grandmother , age 90s No problems noted. Paternal Grandmother , age 90s No problems noted. Social History Smoking/Tobacco Use Status: Former Tobacco Use tobacco type: cigarettes Quit Date: 06/30/94 Tobacco: How many years used: 25 Second Hand Exposure: Yes Smoking risk assessment performed?: Yes Alcohol Intake: never Drug use: Never Substance use type: does not use Caregiver/Support person: Yes Household members: spouse Housing: apartment Do you need help understanding health information?: Never Pets and animals: Yes Pets and animals: cat(s) Do you think of yourself as: straight/heterosexual Current gender identity: male What is your relationship status?: How often do you talk on the phone with friends or family?: decline to answer How often do you get together with friends or relatives?: decline to answer How often do you attend uatsdin or faith services?: decline to answer Do you belong to any clubs or organized social groups?: decline to answer Panel score (0-1 are the most socially isolated patients): 1 What type of physical activity do you participate in: walking and weight lifting Duration: 60-90 minutes/day Frequency: 5-6 times per week Venus/Yazidi: Amish Special venus needs: No Seatbelt use: always Helmet use: Yes Helmet use: always Drive intox or ride w/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 Do you feel safe at home: Yes Additional Social history: unable to assess privately Meds Allergies and Home Medications Allergies Allergy/AdvReac Type Severity Reaction Status Date / Time milk AdvReac Mild mucus Verified 04/14/21 20:38 Home Medications Medication Instructions Recorded Confirmed Type aspirin [Aspirin Low-Strength] 81 mg PO HS tab-cap 02/07/15 04/14/21 History pantoprazole 40 mg tablet,delayed 40 mg PO DAILY PRN #90 tab-cap 08/11/18 04/14/21 Rx release tramadol [Ultram] 50 mg PO Q6H PRN #7 tab 02/20/21 04/14/21 Rx acyclovir 400 mg PO BID 04/14/21 04/14/21 History amlodipine 2.5 mg PO HS 04/14/21 04/14/21 History docusate sodium [Colace] PO 04/14/21 History lisinopril-hydrochlorothiazide 1 tab PO HS 04/14/21 04/14/21 History loratadine [Claritin] 10 mg PO PRN PRN 04/14/21 04/14/21 History metoprolol succinate 100 mg PO HS 04/14/21 04/14/21 History pegfilgrastim [Neulasta] See Rx Instructions .ROUTE .COMPLEX 04/14/21 04/14/21 History prednisone See Rx Instructions .ROUTE .COMPLEX 04/14/21 04/14/21 History prochlorperazine maleate 10 mg PO PRN PRN 04/14/21 04/14/21 History simvastatin 40 mg PO HS 04/14/21 04/14/21 History Exam Narrative Exam Narrative: General: Patient appears appropriate for age, in no acute distress and alert and oriented at least to person place. HEENT: Normocephalic, eyes with pupils equal and react light symmetrically, extraocular movement intact and sclera anicteric. Oropharynx with moist mucosa. Neck: Supple without JVD. Back: Normal posture without CVA tenderness. Lungs: Raspy bronchovesicular breath sounds diffusely with increased expiratory coarse crackles in the right compared to left which are sparse and nonfocalizing. No rhonchi. No expiratory wheeze. Heart: Regular rate and rhythm with no murmurs or gallops appreciated. Abdomen: Normal contour, soft nontender to palpation with no palpable hepatosplenomegaly. Genitalia/rectal: Exam deferred. Skin: Pale, warm and dry with fair turgor. Extremities: Without clubbing, cyanosis or pitting edema. Peripheral pulses intact. Neuro: Cranial nerves II through XII gross intact, no focalizing motor deficits. Patient is hard of hearing. Psych: Normal affect and mood, no abnormal thought processes. Remote and recent memory grossly intact. Results Imaging Imaging Studies: Exam: CTA Chest With Contrast Exam date and time: 04/14/2021 9:48 PM Age: 75 years old Clinical indication: Patient HX: Low oxygen saturation, fever, b cell lymphoma TECHNIQUE: Imaging protocol: Computed tomographic angiography of the chest with contrast. 3D rendering (Not supervised by radiologist): MIP and/or 3D reconstructed images were created by the technologist. COMPARISON: CT CHEST/ABD WO 05/11/2015 8:28 PM FINDINGS: Pulmonary arteries: Normal. No pulmonary emboli. Aorta: Unremarkable. No aortic aneurysm. No aortic dissection. Lungs: Unremarkable. No consolidation. No masses. Pleural spaces: Tiny left pleural effusions. Heart: Unremarkable. No cardiomegaly. No pericardial effusion. Mediastinal space: Persistent nodular soft tissue density abutting the left anterior mid mediastinum along the main pulmonary artery, unchanged since previous study and likely benign Lymph nodes: Unremarkable. No enlarged lymph nodes. Diaphragm: Small hiatal hernia. Bones/joints: Unremarkable. No acute fracture. Soft tissues: Unremarkable. Other findings: Minimal nonspecific bilateral ground-glass opacities, possibly of atypical infectious etiology in the setting of fever. IMPRESSION: Minimal nonspecific bilateral ground-glass opacities, possibly of atypical infectious etiology in the setting of fever. Dictated and Authenticated by: Donnell Carcamo MD. Labs Result diagrams: 04/15/21 06:50 04/15/21 06:50 Labs: Laboratory Results - last 24 hr 04/14/21 04/14/21 04/14/21 20:40 20:40 20:50 WBC 4.48 RBC 3.98 L Hgb 11.6 L Hct 36.1 L MCV 90.7 MCH 29.1 MCHC 32.1 RDW 13.5 Plt Count 94 L D MPV 11.8 H Immature Gran % 0.0 Neutrophils % 82.0 Lymphocytes % 5.0 Monocytes % 6.0 Eosinophils % 1.0 Basophils % 1.0 Metamyelocytes % 4 Myelocytes % 1 Nucleated RBC % 0 Absolute Neutrophils 3.67 Absolute Lymphocytes 0.22 L Absolute Monocytes 0.27 Absolute Eosinophils 0.04 Absolute Basophils 0.04 RBC Morphology Normal Sodium 139 Potassium 3.5 Chloride 101 Carbon Dioxide 30.3 Anion Gap 7.7 BUN 15 Creatinine 1.2 Estimated GFR/1.73 m2 58.71 Glucose 114 H Calcium 8.6 Urine Color Urine Clarity Urine pH Ur Specific [place] Urine Protein Urine Ketones Urine Blood Urine Nitrite Urine Bilirubin Urine Urobilinogen Ur Leukocyte Esterase Urine RBC Urine WBC Ur Epithelial Cells Urine Crystals Urine Bacteria Urine Casts Urine Mucus Urine Other Ur Culture Indicated? Urine Glucose COVID-19 Source Nasal/Nares SARS-CoV-2 (PCR) Negative 04/14/21 21:30 WBC RBC Hgb Hct MCV MCH MCHC RDW Plt Count MPV Immature Gran % Neutrophils % Lymphocytes % Monocytes % Eosinophils % Basophils % Metamyelocytes % Myelocytes % Nucleated RBC % Absolute Neutrophils Absolute Lymphocytes Absolute Monocytes Absolute Eosinophils Absolute Basophils RBC Morphology Sodium Potassium Chloride Carbon Dioxide Anion Gap BUN Creatinine Estimated GFR/1.73 m2 Glucose Calcium Urine Color Yellow Urine Clarity Clear Urine pH 7.0 Ur Specific [place] 1.025 Urine Protein >=300 H Urine Ketones Negative Urine Blood Trace-intact H Urine Nitrite Negative Urine Bilirubin Negative Urine Urobilinogen 1.0 H Ur Leukocyte Esterase Negative Urine RBC 3-5 H Urine WBC 3-5 Ur Epithelial Cells Rare Urine Crystals Negative Urine Bacteria Few Urine Casts Negative Urine Mucus Trace Urine Other Negative Ur Culture Indicated? No Urine Glucose Negative COVID-19 Source SARS-CoV-2 (PCR) Last Vital Signs Temp 37.2 C 04/14/21 23:51 Pulse 69 04/14/21 23:51 Resp 18 04/14/21 23:51 BP 134/73 04/14/21 23:51 Pulse Ox 95 04/14/21 23:51
[2021-04-15] MEDS: traMADol 50 MG TAB PO (02:32)
[2021-04-15 07:16] LABS: HCT 32.7 % (40.0-50.0); HGB 10.6 g/dL (13.5-17.5); MCH 29.5 pg (27.0-33.0); MCHC 32.4 % (32.0-36.0); MCV 91.1 fL (80-95); MPV 11.5 fL (8.0-11.0); Nucleated RBC 0 %; Platelet Count 86 10^3/uL (130-400); RBC 3.59 10^6/uL (4.36-5.78); RDW 13.7 % (11.8-14.1); RDW-SD 44.7 fL; WBC 4.75 10^3/uL (4.4-10.8)
[2021-04-15 07:21] LABS: ALT 39 U/L (16-63); AST 24 U/L (15-37); Albumin 2.4 g/dL (3.4-5.0); Alkaline Phosphatase 56 U/L (46-116); Anion Gap 7.1 mmol/L (3-11); BUN 12 mg/dL (7-18); Bilirubin, Total 0.4 mg/dL (0.2-1.0); CO2 29.9 mmol/L (21.0-32.0); CREATININE 1.1 mg/dL (0.70-1.30); Calcium 8.3 mg/dL (8.5-10.1); Chloride 105 mmol/L (98-107); Glucose 93 mg/dL (74-106); Potassium 3.7 mmol/L (3.5-5.1); Sodium 142 mmol/L (136-145); Total Protein 5.7 g/dL (6.4-8.2)
[2021-04-15] MEDS: Acyclovir 400 MG TAB PO ×2 (07:37→20:26)
[2021-04-15 07:40] LABS: Absolute Eosinophil Count 0.05 10^3/uL (0.0-0.7); Absolute Lymphocyte Count 0.57 10^3/uL (1.2-3.4); Absolute Monocyte Count 0.24 10^3/uL (0.1-0.8); Bands % 9; Diff Comment Manual Differential; RBC Morphology Normal
[2021-04-15] MEDS: Acetaminophen 325 MG TAB 650 MG PO (09:04)
[2021-04-15] MEDS: Normal Saline 1,000 ML 150 ML IV ×3 (09:06→23:48)
[2021-04-15] MEDS: PIPERACILLIN/TAZO 3.375 GM in Normal Saline 50 ML IVPB ×2 (15:05→20:21)
--- NOTE | 2021-04-15 16:12 | INITIAL_ITS ---
- If Service Date Differs Date of service: 04/15/21 Time of Service: 16:12 Care Management Initial Assess REASON FOR HOSPITALIZATION:: Atypical pneumonia PAST MEDICAL HISTORY/PAST SURGICAL HISTORY:: Medical History. Benign prostatic hyperplasia. Diffuse large B cell lymphoma. Heart burn. Hyperlipidemia. Hypertension. Premature ventricular contractions. TIA (transient ischemic attack). Urinary retention. UTI (urinary tract infection). Surgical History. Colonoscopy - IV Sedation. excision of, parotid tumor/gland. [id number]- [facility]; ALL BENIGN. H/O cataract extraction. (R) 10/14/17. (L) 10/01/17. [facility] [place]. MACULAR PUCKER SURGERY. 10/18/14; [facility]. S/P TURP (~10/19/18). transesophageal echo PREVIOUS FUNCTIONAL STATUS/SOCIAL/FAMILY SUPPORTS:: Meng lives at home with his in an apartment in [place]. He has no children but his has 4 adult children who live in [place] and [place]. He is independent with all activities and drives. 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 CURRENT FUNCTIONAL STATUS:: Fuentes was sitting up in bed when CM met with him. He was pleasant and engaged in conversation. He stated that he spoke to the provider, who would be making an adjustment to his antibiotic treatment today. Fuentes would like to discharge home today, if possible. He stated that his will be in later to visit. CM will continue to follow. ADVANCE DIRECTIVES:: None on file at [facility]. Has patient been provided with info about the portal/API?: Yes Did the patient sign up for the portal?: No CODE STATUS:: Full Code INSURANCE COVERAGE / FINANCIAL ISSUES:: [facility]/ [facility] CURRENT HOME/COMMUNITY SERVICES/EQUIPMENT:: No current services or equipment. PRIMARY CARE PHYSICIAN:: Dejuan Henderson POTENTIAL DISCHARGE NEEDS:: Follow up appointments. PATIENT/FAMILY EDUCATION NEEDS:: Review discharge instructions, discussion of self care needs including ask me three. ANTICIPATED BARRIERS TO DISCHARGE:: None identified. TRANSPORTATION:: Via private vehicle by his . PLAN:: Anticipate Fuentes will return home when medically cleared. He will be driven home via private vehicle. He will follow up with his PCP and discharge plan of care. CM will continue to follow.
--- NOTE | 2021-04-15 18:38 | NUR.NOTE ---
informed his via phone that covid test is negative.Nursing Note:
[2021-04-15] MEDS: Normal Saline Flush 10 ML SYR IVP (20:20)
[2021-04-15] MEDS: AZITHROMYCIN 500 MG in Normal Saline 250 ML 250 MG IVPB (21:36)
[2021-04-15] MEDS: Metoprolol CR 100 MG TABCR PO (21:40)
[2021-04-15] MEDS: Simvastatin 40 MG TAB PO (21:40)
[2021-04-15] MEDS: Melatonin 3 MG TAB PO (21:40)
[2021-04-15] MEDS: Aspirin 81 MG CHEW PO (21:41)
[2021-04-15] MEDS: Lisinopril 20 MG TAB PO (21:41)
[2021-04-15] MEDS: hydroCHLOROthiazide 12.5 MG TAB PO (21:41)
[2021-04-15] MEDS: amLODIPine 2.5 MG TAB PO (21:41)
[2021-04-16] MEDS: PIPERACILLIN/TAZO 3.375 GM in Normal Saline 50 ML IVPB ×2 (02:14→07:40)
[2021-04-16 03:47] VITALS: BP 133/60; PULSE 68; RESP 17; TEMP 37.3; O2SAT 97
[2021-04-16 07:21] LABS: Abs Immature Grans 0.19 10^3/uL (0.0-0.06); Absolute Basophil Count 0.05 10^3/uL (0.0-0.2); Absolute Eosinophil Count 0.05 10^3/uL (0.0-0.7); HCT 30.1 % (40.0-50.0); HGB 9.6 g/dL (13.5-17.5); MCH 28.6 pg (27.0-33.0); MCHC 31.9 % (32.0-36.0); MCV 89.6 fL (80-95); MPV 11.1 fL (8.0-11.0); Nucleated RBC 0 %; RBC 3.36 10^6/uL (4.36-5.78); RDW 13.8 % (11.8-14.1); RDW-SD 44.6 fL; WBC 5.25 10^3/uL (4.4-10.8)
[2021-04-16 07:38] VITALS: O2SAT 95
[2021-04-16] MEDS: Acyclovir 400 MG TAB PO (07:40)
[2021-04-16 07:49] LABS: Platelet Count 85 10^3/uL (130-400)
[2021-04-16 07:50] LABS: Absolute Lymphocyte Count 0.42 10^3/uL (1.2-3.4); Absolute Monocyte Count 0.47 10^3/uL (0.1-0.8); Bands % 4; Diff Comment Manual Differential; Polychromasia Present
[2021-04-16 08:11] VITALS: BP 150/75; PULSE 74; RESP 16; TEMP 37.3; O2SAT 92
--- NOTE | 2021-04-16 09:39 | CMPROGNOTE_ITS ---
- If Service Date Differs Date of service: 04/16/21 Time of Service: 09:39 Care Management Progress Note S/O: A: 75 year male admitted to [facility] on P:Anticipate Fuentes will return home when medically cleared. He will be driven home via private vehicle. He will follow up with his PCP and discharge plan of care. CM will continue to follow.
--- NOTE | 2021-04-16 13:46 | DSE_ITS ---
Date of service: 04/16/21 Time of Service: 13:46 DS: Diagnosis Discharge Diagnosis (1) Pneumonia: Status: Acute (2) Hypoxemia: Status: Acute (3) B-cell lymphoma: Status: Chronic Discharge Plan Disposition Patient Disposition: HOME Condition: Fair Discharge Details Reason For Visit: Atypical Pneumonia Admit Date/Time: 04/15/21 00:09 Admit Provider: Bryan Gonzalez Attending Provider: Bryan Gonzalez Primary Care Provider: Dejuan Henderson Hospital Course Hospital Course: This is a 75-year-old male patient just discharged from [facility] 04/13/2021 after admission for febrile neutropenia. Patient last received chemotherapy April 04. He is being treated for B-cell lymphoma. Other than postnasal drip and congestion denies having any other symptoms. He specifically denies headache, cough, chest pain, shortness of breath, abdominal pain, vomiting, diarrhea, urinary symptoms, pain at his port site. contacted oncology at [facility] and patient referred back into emergency department. Patient did have recurrent fever which prompted his ED visit. Patient has had positive x-ray findings of the chest with viral pattern and multiple tests for Covid which were negative along with respiratory pathogen screen which were all negative. He was treated with Zosyn and his previous hospitalization and discharged on Levaquin (one dose taken). In the ED the patient was found to have atypical pneumonia and was placed on a Zithromax. He did have need for oxygen supplement. Patient had no other complaints at the time of my exam. He appears fatigued from having a sleepless night. He did have a fever the night of admission and the following night. Afebrile during the day. Antibiotic changed to Zosyn. WBC count remained normal. No cough/sputum. No supplemental O2 needs. He ambulated in the hallway w/o shortness of air. He very much desired to d/c to home for ongoing care. He will d/c on a 5 day course of Augmentin. He has a f/u with oncology scheduled for next week. If he doesn't see his fever start to subside or if he develops shortness of air, OLIVIER, cough, he should return or discuss with oncology or PCP. Home Meds and New Rx's Prescriptions: New amoxicillin-pot clavulanate 875-125 mg tablet 1 tab PO BID Qty: 10 RF: 0 Continued aspirin [Aspirin Low-Strength] 81 MG tablet,chewable 81 mg PO HS RF: 0 pantoprazole 40 mg tablet,delayed release (DR/EC) 40 mg PO DAILY PRN (Reason: gerd) Qty: 90 RF: 1 prednisone 20 mg tablet See Rx Instructions .ROUTE .COMPLEX RF: 0 prochlorperazine maleate 10 mg tablet 10 mg PO PRN PRNRF: 0 acyclovir 400 mg tablet 400 mg PO BID RF: 0 Neulasta 6 mg/0.6 mL Syringe See Rx Instructions .ROUTE .COMPLEX RF: 0 loratadine [Claritin] 10 mg Tablet 10 mg PO PRN PRNRF: 0 docusate sodium 50 mg Capsule PO RF: 0 lisinopril-hydrochlorothiazide 20-12.5 mg tablet 1 tab PO HS RF: 0 metoprolol succinate 100 mg tablet extended release 24 hr 100 mg PO HS RF: 0 amlodipine 2.5 mg tablet 2.5 mg PO HS RF: 0 simvastatin 40 mg tablet 40 mg PO HS RF: 0 tramadol [Ultram] 50 mg tablet 50 mg PO Q6H PRNQty: 7 RF: 0 Discharge Instructions Activity:: Activity as Tolerated Equipment/Supplies:: No Equipment Needed Diet:: As Tolerated Discharge Orders Discharge Orders: Discharge Order (Routine); Ordered 04/16/21 Ordered By: Jonathan Whitmore DS: Summary Time Spent with Patient providing and/or coordinating discharge services: Greater than 30 minutes Status at Discharge Functional status at discharge: independent ambulation Overall status at discharge: patient is progressing back to baseline Mental Status: mental status grossly normal Speech and Movement: speech and movement normal Mood: congruent mood Affect: normal affect Exam Psych Mental Status: mental status grossly normal Speech and Movement: speech and movement normal Mood: congruent mood Affect: normal affect DS: Data Vitals/I&O Vitals and I&O: Vital Signs Temperature 37.3 C 04/16/21 08:11 Temperature Source Tympanic 04/16/21 08:11 Pulse 74 04/16/21 08:11 Pulse Rhythm Regular 04/16/21 09:51 Pulse 80 04/15/21 00:40 Respiratory Rate 16 04/16/21 08:11 Respiratory Effort 04/16/21 09:51 Respiratory Depth Shallow 04/16/21 09:51 Respiratory Pattern Normal 04/16/21 09:51 Blood Pressure 150/75 H 04/16/21 08:11 Blood Pressure Mean 93 04/15/21 00:01 Blood Pressure Position Supine 04/14/21 20:25 Pulse Oximetry 92 04/16/21 08:11 Oxygen Delivery Method Room Air 04/16/21 08:11 Oxygen Flow Rate 0 04/16/21 08:11 Fraction of Inspired Oxygen (FIO2) 2 04/14/21 22:01 Pain Level 0 04/16/21 08:11 Comment 04/15/21 22:45 Intake & Output 04/15/21 04/16/21 04/16/21 23:59 11:59 23:59 Intake Total 2800 / 4095 1100 / 1100 Output Total 1500 / 1500 Balance 2800 / 3895 -400 / -400 Weight 74 kg Intake: IV 2260 / 3255 1100 / 1100 Oral 540 / 840 Output: Urine 1500 / 1500 Other: Urine Color Light Kiesha Urine Appearance Clear Urine Odor None Comment Pt urinates independently. Took self just before RN came in room Voiding Methods Toilet Urinal Data Completed and Pending Labs on day of discharge: Labs from last 24 hours 04/16/21 06:40 WBC 5.25 RBC 3.36 L Hgb 9.6 L Hct 30.1 L MCV 89.6 MCH 28.6 MCHC 31.9 L RDW 13.8 Plt Count 85 L MPV 11.1 H Immature Gran % See Differential Neutrophils % 76.0 Band Neutrophils % 4 Lymphocytes % 8.0 Monocytes % 9.0 Eosinophils % 1.0 Basophils % 1.0 Nucleated RBC % 0 Absolute Neutrophils 4.20 Absolute Lymphocytes 0.42 L Absolute Monocytes 0.47 Absolute Eosinophils 0.05 Absolute Basophils 0.05 RBC Morphology See Below Polychromasia Present Preliminary micro results at discharge 04/14/21 21:09 Blood Culture - Preliminary Blood NO GROWTH 24 HOURS 04/14/21 20:40 Blood Culture - Preliminary Blood NO GROWTH 24 HOURS [facility] Medical History Benign prostatic hyperplasia Diffuse large B cell lymphoma Heart burn Hyperlipidemia Hypertension Premature ventricular contractions TIA (transient ischemic attack) Urinary retention UTI (urinary tract infection) Surgical History Colonoscopy - IV Sedation excision of, parotid tumor/gland [id number]- [facility]; ALL BENIGN H/O cataract extraction (R) 10/14/17 (L) 10/01/17 [facility] [place] MACULAR PUCKER SURGERY 10/18/14; MARÍA URBANO S/P ERICA (~10/19/18) transesophageal echo Family History Mother , AGE 86 Stroke Hypertension Diabetes a touch Father , AGE 39 No problems noted. Brother , AGE 77 Stroke Maternal Grandfather , age 80 No problems noted. Paternal Grandfather , age 80s No problems noted. Maternal Grandmother , age 90s No problems noted. Paternal Grandmother , age 90s No problems noted. Social History Smoking/Tobacco Use Status: Former Tobacco Use tobacco type: cigarettes Quit Date: 06/30/94 Tobacco: How many years used: 25 Second Hand Exposure: Yes Smoking risk assessment performed?: Yes Alcohol Intake: never Drug use: Never Substance use type: does not use Caregiver/Support person: Yes Household members: spouse Housing: apartment Do you need help understanding health information?: Never Pets and animals: Yes Pets and animals: cat(s) Do you think of yourself as: straight/heterosexual Current gender identity: male What is your relationship status?: How often do you talk on the phone with friends or family?: decline to answer How often do you get together with friends or relatives?: decline to answer How often do you attend pentecostalism or jain services?: decline to answer Do you belong to any clubs or organized social groups?: decline to answer Panel score (0-1 are the most socially isolated patients): 1 What type of physical activity do you participate in: walking and weight lifting Duration: 60-90 minutes/day Frequency: 5-6 times per week Venus/Nondenominational: Uatsdin Special venus needs: No Seatbelt use: always Helmet use: Yes Helmet use: always Drive intox or ride w/intox power truck driver: No Do you feel safe at home: Yes Additional Social history: unable to assess privately
[2021-04-16] MEDS: Heparin 500 UNITS/5 ML SYRINGE IVP (14:06)
[2021-04-16] MEDS: Normal Saline Flush 10 ML SYR IVP (14:06)
--- NOTE | 2021-04-16 15:01 | PDOC.CMDIS ---
- If Service Date Differs Date of service: 04/16/21 Time of Service: 15:01 LACE Index Scoring Tool - Questions: Length of Stay (in days): 1 Acuity (Admit via E.D.?): Yes Comorbidities: Any Tumor E.D. Visits: 1 - Answers: Total Score: 7 Risk of Readmission: Low Risk Care Management Discharge Reason for Hospitalization: Atypical pneumonia Discharge Plan: Discharge home with no new services via private vehicle with family. Continue course of antibiotics and follow up with PCP and discharge plan of care as prescribed. Patient/Family Education Needs: Review discharge instructions, limitations and discharge plan of care as prescribed. ask me three.
== END 2021-04-16 14:27 | disposition home or self-care (01) | DRG 194 ==
LOC: ER 04-15 01:07 → MS 04-15 01:10
PROVIDERS: Family Medicine; Admitting Provider Family Medicine; Emergency Provider Emergency Medicine; PCP Family Medicine; Visit Provider Family Medicine
DX: J18.9 Pneumonia, unspecified organism (principal); C83.00 Small cell B-cell lymphoma, unspecified site; R09.02 Hypoxemia; Z79.899 Other long term (current) drug therapy; N40.0 Benign prostatic hyperplasia without lower urinary tract symptoms; E78.5 Hyperlipidemia, unspecified; I10 Essential (primary) hypertension; I49.3 Ventricular premature depolarization; Z86.73 Personal history of transient ischemic attack (TIA), and cerebral infarction without residual deficits; R33.9 Retention of urine, unspecified; Z20.822 Contact with and (suspected) exposure to COVID-19
CPT/HCPCS: 36415; 36591; 71275; 80048; 80053; 87040; 87635; 96361; 96365; 99285; 81003; 81015; 85025; 99223; 99239; J0456; J2543; J3490

== ENCOUNTER 2021-05-10 01:47 | Outpatient (RCR) | payer MEDICARE, OTHER, SELFPAY ==
[2021-05-10] MEDS: Normal Saline Flush 10 ML SYR IVP (10:37)
[2021-05-10] MEDS: Heparin 500 UNITS/5 ML SYRINGE IV (10:37)
[2021-05-10 10:46] LABS: Abs Immature Grans 0.05 10^3/uL (0.0-0.06); HCT 37.7 % (40.0-50.0); HGB 12.1 g/dL (13.5-17.5); MCH 28.9 pg (27.0-33.0); MCHC 32.1 % (32.0-36.0); MCV 90.2 fL (80-95); MPV 11.8 fL (8.0-11.0); Nucleated RBC 0 %; Platelet Count 113 10^3/uL (130-400); RBC 4.18 10^6/uL (4.36-5.78); RDW 14.6 % (11.8-14.1); RDW-SD 48.4 fL; WBC 4.69 10^3/uL (4.4-10.8)
[2021-05-10 10:58] LABS: BUN 25 mg/dL (7-18); Calcium 9.3 mg/dL (8.5-10.1); Glucose 105 mg/dL (74-106)
[2021-05-10 10:59] LABS: ALT 27 U/L (16-63); AST 13 U/L (15-37); Albumin 3.3 g/dL (3.4-5.0); Alkaline Phosphatase 68 U/L (46-116); Anion Gap 5.6 mmol/L (3-11); Bilirubin, Total 0.6 mg/dL (0.2-1.0); CO2 30.4 mmol/L (21.0-32.0); Chloride 106 mmol/L (98-107); Potassium 3.9 mmol/L (3.5-5.1); Sodium 142 mmol/L (136-145); Total Protein 6.3 g/dL (6.4-8.2)
[2021-05-10 11:12] LABS: Absolute Basophil Count 0.05 10^3/uL (0.0-0.2); Absolute Eosinophil Count 0.19 10^3/uL (0.0-0.7); Absolute Lymphocyte Count 1.08 10^3/uL (1.2-3.4); Absolute Monocyte Count 0.42 10^3/uL (0.1-0.8); Absolute Neutrophil Count 2.91 10^3/uL (1.2-6.7); Atypical Lymphocytes % 1; Bands % 5; Metamyelocytes % 1
[2021-05-10 11:13] LABS: Diff Comment Manual Differential; RBC Morphology Normal
== END 2021-05-29 23:59 | disposition home or self-care (01) ==
LOC: INF 01:47
PROVIDERS: PCP Family Medicine; Visit Provider Internal Medicine Hematology & Oncology
DX: C85.90 Non-Hodgkin lymphoma, unspecified, unspecified site (principal); Z45.2 Encounter for adjustment and management of vascular access device
CPT/HCPCS: 36591; 80053; 85025

== ENCOUNTER 2021-05-22 01:39 | Outpatient (RCR) | payer MEDICARE, OTHER, SELFPAY ==
[2021-05-22 10:09] LABS: Abs Immature Grans 0.12 10^3/uL (0.0-0.06); Absolute Basophil Count 0.06 10^3/uL (0.0-0.2); Absolute Eosinophil Count 0.05 10^3/uL (0.0-0.7); Absolute Lymphocyte Count 1.01 10^3/uL (1.2-3.4); Absolute Monocyte Count 0.97 10^3/uL (0.1-0.8); Absolute Neutrophil Count 6.47 10^3/uL (1.2-6.7); Basophils % 0.7; Eosinophils % 0.6; HCT 40.6 % (40.0-50.0); HGB 12.9 g/dL (13.5-17.5); Immature Grans % 1.4; Lymphocytes % 11.6; MCH 28.9 pg (27.0-33.0); MCHC 31.8 % (32.0-36.0); MCV 90.8 fL (80-95); MPV 10.2 fL (8.0-11.0); Monocytes % 11.2; Neutrophils % 74.5; Nucleated RBC 0 %; Platelet Count 248 10^3/uL (130-400); RBC 4.47 10^6/uL (4.36-5.78); RDW 15.4 % (11.8-14.1); RDW-SD 50.7 fL; WBC 8.68 10^3/uL (4.4-10.8)
[2021-05-22 10:26] LABS: ALT 21 U/L (16-63); AST 13 U/L (15-37); Albumin 3.1 g/dL (3.4-5.0); Alkaline Phosphatase 60 U/L (46-116); Anion Gap 7.8 mmol/L (3-11); BUN 27 mg/dL (7-18); Bilirubin, Total 0.5 mg/dL (0.2-1.0); CO2 26.2 mmol/L (21.0-32.0); CREATININE 0.9 mg/dL (0.70-1.30); Calcium 8.5 mg/dL (8.5-10.1); Chloride 107 mmol/L (98-107); Glucose 94 mg/dL (74-106); LDH 169 U/L (85-227); Potassium 3.6 mmol/L (3.5-5.1); Sodium 141 mmol/L (136-145); Total Protein 6.1 g/dL (6.4-8.2)
== END 2021-05-29 23:59 | disposition home or self-care (01) ==
LOC: INF 01:39
PROVIDERS: PCP Family Medicine; Visit Provider Internal Medicine Hematology & Oncology
DX: C85.90 Non-Hodgkin lymphoma, unspecified, unspecified site (principal); Z45.2 Encounter for adjustment and management of vascular access device
CPT/HCPCS: 36591; 80053; 86850; 86900; 86901; 83615; 85025

== ENCOUNTER 2021-06-13 08:45 | Outpatient (RCR) | payer MEDICARE, OTHER, SELFPAY ==
[2021-05-31] MEDS: Heparin 500 UNITS/5 ML SYRINGE IV (09:28)
[2021-05-31] MEDS: Normal Saline Flush 10 ML SYR IVP (09:28)
[2021-05-31 09:41] LABS: HCT 36.4 % (40.0-50.0); HGB 11.6 g/dL (13.5-17.5); MCH 29.1 pg (27.0-33.0); MCHC 31.9 % (32.0-36.0); MCV 91.2 fL (80-95); MPV 10.8 fL (8.0-11.0); Nucleated RBC 0 %; Platelet Count 132 10^3/uL (130-400); RBC 3.99 10^6/uL (4.36-5.78); RDW 15.3 % (11.8-14.1); RDW-SD 51.5 fL; WBC 7.04 10^3/uL (4.4-10.8)
[2021-05-31 09:51] LABS: Absolute Lymphocyte Count 0.35 10^3/uL (1.2-3.4); Absolute Monocyte Count 0.14 10^3/uL (0.1-0.8); Absolute Neutrophil Count 6.55 10^3/uL (1.2-6.7); Atypical Lymphocytes % 2; Bands % 1; Diff Comment Manual Differential; RBC Morphology Normal
[2021-06-04] MEDS: Normal Saline Flush 10 ML SYR IVP (11:00)
[2021-06-04] MEDS: Heparin 500 UNITS/5 ML SYRINGE IV (11:00)
[2021-06-04 11:31] LABS: HCT 36.6 % (40.0-50.0); HGB 11.5 g/dL (13.5-17.5); MCHC 31.4 % (32.0-36.0); MCV 92.2 fL (80-95); MPV 11.5 fL (8.0-11.0); Nucleated RBC 0 %; Platelet Count 134 10^3/uL (130-400); RBC 3.97 10^6/uL (4.36-5.78); RDW 16.2 % (11.8-14.1); RDW-SD 53.1 fL
[2021-06-04 12:10] LABS: Absolute Eosinophil Count 0.09 10^3/uL (0.0-0.7); Absolute Lymphocyte Count 0.88 10^3/uL (1.2-3.4); Absolute Monocyte Count 0.88 10^3/uL (0.1-0.8); Absolute Neutrophil Count 6.86 10^3/uL (1.2-6.7); Atypical Lymphocytes % 1; Bands % 5; Diff Comment Manual Differential; Metamyelocytes % 1; RBC Morphology Normal
[2021-06-12 10:20] LABS: Abs Immature Grans 0.08 10^3/uL (0.0-0.06); Absolute Basophil Count 0.07 10^3/uL (0.0-0.2); Absolute Eosinophil Count 0.06 10^3/uL (0.0-0.7); Absolute Lymphocyte Count 0.91 10^3/uL (1.2-3.4); Absolute Monocyte Count 0.73 10^3/uL (0.1-0.8); Absolute Neutrophil Count 6.25 10^3/uL (1.2-6.7); Basophils % 0.9; Eosinophils % 0.7; HCT 38.6 % (40.0-50.0); HGB 12.1 g/dL (13.5-17.5); Lymphocytes % 11.2; MCH 29.1 pg (27.0-33.0); MCHC 31.3 % (32.0-36.0); MCV 92.8 fL (80-95); Neutrophils % 77.2; Nucleated RBC 0 %; Platelet Count 193 10^3/uL (130-400); RBC 4.16 10^6/uL (4.36-5.78); RDW 16.3 % (11.8-14.1); RDW-SD 55.1 fL
[2021-06-12] MEDS: Heparin 500 UNITS/5 ML SYRINGE IV (10:30)
[2021-06-12] MEDS: Normal Saline Flush 10 ML SYR IVP (10:30)
[2021-06-13] MEDS: Normal Saline Flush 10 ML SYR IVP (08:32)
[2021-06-13 09:07] LABS: ALT 20 U/L (16-63); AST 18 U/L (15-37); Albumin 3.6 g/dL (3.4-5.0); Alkaline Phosphatase 70 U/L (46-116); Anion Gap 6.6 mmol/L (3-11); BUN 29 mg/dL (7-18); Bilirubin, Total 0.6 mg/dL (0.2-1.0); CO2 30.4 mmol/L (21.0-32.0); CREATININE 1.1 mg/dL (0.70-1.30); Calcium 9.1 mg/dL (8.5-10.1); Chloride 105 mmol/L (98-107); Glucose 115 mg/dL (74-106); LDH 185 U/L (85-227); Potassium 4.1 mmol/L (3.5-5.1); Sodium 142 mmol/L (136-145); Total Protein 6.8 g/dL (6.4-8.2)
== END 2021-06-29 23:59 | disposition home or self-care (01) ==
LOC: INF 08:45
PROVIDERS: PCP Family Medicine; Visit Provider Internal Medicine Hematology & Oncology
DX: C85.90 Non-Hodgkin lymphoma, unspecified, unspecified site (principal); Z45.2 Encounter for adjustment and management of vascular access device
CPT/HCPCS: 36591; 80053; 83615; 85025

== ENCOUNTER 2021-07-03 01:26 | Outpatient (RCR) | payer MEDICARE, OTHER, SELFPAY ==
[2021-07-03] MEDS: Normal Saline Flush 10 ML SYR IVP (10:07)
[2021-07-03] MEDS: Heparin 500 UNITS/5 ML SYRINGE IV (10:07)
[2021-07-03 10:18] LABS: Abs Immature Grans 0.07 10^3/uL (0.0-0.06); Absolute Basophil Count 0.07 10^3/uL (0.0-0.2); Absolute Eosinophil Count 0.02 10^3/uL (0.0-0.7); Absolute Lymphocyte Count 0.86 10^3/uL (1.2-3.4); Absolute Monocyte Count 0.78 10^3/uL (0.1-0.8); Absolute Neutrophil Count 6.37 10^3/uL (1.2-6.7); Basophils % 0.9; Eosinophils % 0.2; HCT 38.9 % (40.0-50.0); HGB 12.4 g/dL (13.5-17.5); Immature Grans % 0.9; Lymphocytes % 10.5; MCH 29.9 pg (27.0-33.0); MCHC 31.9 % (32.0-36.0); MCV 93.7 fL (80-95); MPV 10.7 fL (8.0-11.0); Monocytes % 9.5; Nucleated RBC 0 %; Platelet Count 225 10^3/uL (130-400); RBC 4.15 10^6/uL (4.36-5.78); RDW 15.8 % (11.8-14.1); RDW-SD 53.8 fL; WBC 8.17 10^3/uL (4.4-10.8)
[2021-07-03 10:37] LABS: ALT 22 U/L (16-63); AST 16 U/L (15-37); Albumin 3.6 g/dL (3.4-5.0); Alkaline Phosphatase 69 U/L (46-116); BUN 28 mg/dL (7-18); Bilirubin, Total 0.3 mg/dL (0.2-1.0); CREATININE 1.1 mg/dL (0.70-1.30); Calcium 9.4 mg/dL (8.5-10.1); Chloride 106 mmol/L (98-107); Glucose 106 mg/dL (74-106); LDH 192 U/L (85-227); Potassium 4.2 mmol/L (3.5-5.1); Sodium 142 mmol/L (136-145); Total Protein 6.7 g/dL (6.4-8.2)
== END 2021-07-30 23:59 | disposition home or self-care (01) ==
LOC: INF 01:26
PROVIDERS: PCP Family Medicine; Visit Provider Internal Medicine Hematology & Oncology
DX: C85.95 Non-Hodgkin lymphoma, unspecified, lymph nodes of inguinal region and lower limb (principal); Z45.2 Encounter for adjustment and management of vascular access device
CPT/HCPCS: 36591; 80053; 83615; 85025

== ENCOUNTER 2021-10-10 02:18 | Outpatient (RCR) | payer MEDICARE, OTHER, SELFPAY ==
[2021-10-10] MEDS: Normal Saline Flush 10 ML SYR IVP (09:05)
[2021-10-10] MEDS: Heparin 500 UNITS/5 ML SYRINGE IV (09:10)
[2021-10-10 09:33] LABS: Abs Immature Grans 0.01 10^3/uL (0.0-0.06); Absolute Basophil Count 0.03 10^3/uL (0.0-0.2); Absolute Lymphocyte Count 0.84 10^3/uL (1.2-3.4); Absolute Monocyte Count 0.37 10^3/uL (0.1-0.8); Absolute Neutrophil Count 3.33 10^3/uL (1.2-6.7); Basophils % 0.6; Eosinophils % 4.2; HGB 15.9 g/dL (13.5-17.5); Immature Grans % 0.2; Lymphocytes % 17.6; MCH 29.2 pg (27.0-33.0); MCHC 31.8 % (32.0-36.0); MCV 91.9 fL (80-95); MPV 11.2 fL (8.0-11.0); Monocytes % 7.7; Neutrophils % 69.7; Nucleated RBC 0 %; Platelet Count 167 10^3/uL (130-400); RBC 5.44 10^6/uL (4.36-5.78); RDW 12.8 % (11.8-14.1); RDW-SD 43.1 fL; WBC 4.78 10^3/uL (4.4-10.8)
[2021-10-10 09:44] LABS: ALT 30 U/L (16-63); AST 21 U/L (15-37); Albumin 3.8 g/dL (3.4-5.0); Alkaline Phosphatase 61 U/L (46-116); Anion Gap 4.9 mmol/L (3-11); BUN 29 mg/dL (7-18); Bilirubin, Total 0.7 mg/dL (0.2-1.0); CO2 32.1 mmol/L (21.0-32.0); CREATININE 1.2 mg/dL (0.70-1.30); Calcium 9.4 mg/dL (8.5-10.1); Chloride 105 mmol/L (98-107); Estimated GFR 58.71 (mL/min/1.73m2); Glucose 85 mg/dL (74-106); LDH 176 U/L (85-227); Potassium 4.5 mmol/L (3.5-5.1); Sodium 142 mmol/L (136-145); Total Protein 6.8 g/dL (6.4-8.2)
== END 2021-10-27 23:59 | disposition home or self-care (01) ==
LOC: INF 02:18
PROVIDERS: PCP Family Medicine; Visit Provider Internal Medicine Hematology & Oncology
DX: C85.90 Non-Hodgkin lymphoma, unspecified, unspecified site (principal); Z45.2 Encounter for adjustment and management of vascular access device
CPT/HCPCS: 36415; 80053; 96523; 83615; 85025

== ENCOUNTER 2021-11-14 02:04 | Outpatient (RCR) | payer MEDICARE, OTHER, SELFPAY ==
[2021-11-14] MEDS: Heparin 500 UNITS/5 ML SYRINGE IV (11:00)
[2021-11-14] MEDS: Normal Saline Flush 10 ML SYR IVP (11:00)
== END 2021-11-27 23:59 | disposition home or self-care (01) ==
LOC: INF 02:04
PROVIDERS: PCP Family Medicine; Visit Provider Internal Medicine Hematology & Oncology
DX: Z45.2 Encounter for adjustment and management of vascular access device (principal)
CPT/HCPCS: 96523

== ENCOUNTER → 2022-01-07 09:47 | Outpatient (BNVA) | payer MEDICARE, OTHER, SELFPAY | PROVIDERS: PCP Family Medicine; Referring Provider Family Medicine; Visit Provider Surgery | DX: Z45.2 Encounter for adjustment and management of vascular access device (principal) | CPT/HCPCS: 99212 ==

== ENCOUNTER 2022-03-12 03:50 | Outpatient (CLI) | payer MEDICARE, OTHER, SELFPAY ==
[2022-03-12 10:58] LABS: Abs Immature Grans 0.01 10^3/uL (0.0-0.06); Absolute Basophil Count 0.03 10^3/uL (0.0-0.2); Absolute Eosinophil Count 0.11 10^3/uL (0.0-0.7); Absolute Lymphocyte Count 0.75 10^3/uL (1.2-3.4); Absolute Monocyte Count 0.43 10^3/uL (0.1-0.8); Absolute Neutrophil Count 3.73 10^3/uL (1.2-6.7); Basophils % 0.6; Eosinophils % 2.2; HCT 48.2 % (40.0-50.0); HGB 15.8 g/dL (13.5-17.5); Immature Grans % 0.2; Lymphocytes % 14.8; MCHC 32.8 % (32.0-36.0); MCV 92 fL (80-95); MPV 11.2 fL (8.0-11.0); Monocytes % 8.5; Neutrophils % 73.7; Platelet Count 156 10^3/uL (130-400); RBC 5.27 10^6/uL (4.36-5.78); RDW 13.2 % (11.8-14.1); RDW-SD 44.9 fL; WBC 5.06 10^3/uL (4.4-10.8)
[2022-03-12 11:25] LABS: ALT 29 U/L (16-63); AST 22 U/L (15-37); Albumin 4.1 g/dL (3.4-5.0); Alkaline Phosphatase 56 U/L (46-116); Anion Gap 5.8 mmol/L (3-11); BUN 25 mg/dL (7-18); CO2 31.2 mmol/L (21.0-32.0); CREATININE 1.2 mg/dL (0.70-1.30); Calcium 9.3 mg/dL (8.5-10.1); Chloride 103 mmol/L (98-107); Glucose 94 mg/dL (74-106); LDH 156 U/L (85-227); Potassium 4.3 mmol/L (3.5-5.1); Sodium 140 mmol/L (136-145); Total Protein 7.2 g/dL (6.4-8.2)
== END 2022-03-12 03:51 | disposition home or self-care (01) ==
LOC: LBO 03:53
PROVIDERS: PCP Family Medicine; Visit Provider Internal Medicine Hematology & Oncology
DX: C83.35 Diffuse large B-cell lymphoma, lymph nodes of inguinal region and lower limb (principal)
CPT/HCPCS: 36415; 80053; 83615; 85025

== ENCOUNTER 2022-04-29 20:25 | Emergency (ER) | payer MEDICARE, OTHER, SELFPAY ==
--- NOTE | 2022-04-29 20:45 | RT.EKG_ITS ---
APPROVED REPORT Exam: Resting ECG Reason for Exam: hypertension Patient Location: E HR:65 bpm ECG Measurements Heart Rate 65 AXIS SC 170 P 31 QRSd 92 QRS 0 QT 388 T 45 QTc 403 Conclusion Sinus rhythm...normal P axis, V-rate 60- 99 Physician: no stemi, stable
--- NOTE | 2022-04-29 20:55 | ED.GENADUL_ITS ---
Discharge Plan Disposition Patient Disposition: HOME Condition: Good Discharge Details Clinical Impression: Hypertension Primary Care Provider: Dejuan Henderson ED Provider: Liborio Melendez Home Meds and New Rx's Prescriptions: No Action metoprolol succinate 100 mg tablet extended release 24 hr 100 mg PO HS Qty: 90 3RF lisinopril-hydrochlorothiazide 20-12.5 mg tablet 1 tab PO HS Qty: 90 3RF simvastatin 40 mg tablet 40 mg PO HS Qty: 90 3RF aspirin [Aspirin Low-Strength] 81 MG tablet,chewable 81 mg PO HS amlodipine 2.5 mg tablet 2.5 mg PO HS Qty: 90 3RF docusate sodium 50 mg Capsule PO Discharge Instructions Instructions: Hypertension (ED) Additional Instructions: At this time your work-up has returned normal and reassuring. No significant abnormalities, heart abnormalities, or other pathologies are noted. Please drink plenty of fluids and stay well-hydrated. Follow-up closely with your primary care provider. If you notice any worsening of your symptoms, or any new symptoms such as vomiting, diarrhea, fever, chills, shortness of breath, chest pain, numbness, weakness, or fainting , please return immediately to the emergency department for reevaluation. Please follow up with your primary care provider as soon as possible for reassessment and reevaluation. As always, it was a pleasure participating in your medical care today. Referrals: Dejuan Henderson MD [Primary Care Provider] - Medical Decision Making 76-year-old male with a past medical history of B-cell lymphoma, GERD, previous TIA, whitecoat syndrome with hypertension, BPH, high cholesterol, who presents today for evaluation of elevated blood pressure and transient dizziness. Patient states that at about 3 PM he felt mildly dizzy, he checked his blood pressure and it was in the 180s systolic. This is notably atypical for him. He kept checking his blood pressure throughout the day. He did contact his on-call PCP Dr. Acevedo, and she recommended taking his nighttime blood pressure meds a little early. His symptoms gradually improved, and by the time he arrived here this evening at around 8 PM his symptoms had completely resolved and he feels fine. He denies any other complaints at this time. He denies any vision changes, room spinning, trauma or falls. No other modifying factors. Physical exam demonstrates well-appearing male, no focal neurologic deficits. No evidence of facial droop or other significant abnormalities concerning for TIA or stroke. Uncertain as to why the patient's blood pressure was elevated transiently. No evidence of cerebellar stroke clinically. We will evaluate for cardiac etiology, electrolyte abnormality, monitor closely and reassess. At this time the patient blood pressure is notably stable. No signs of hypertensive urgency or emergency. 11:07 PM Laboratory work-up, troponin, proBNP, EKG is returned stable with no significant abnormalities. On reassessment patient feels excellent, he is requesting to go home. No evidence of hypertension emergency. No signs of other abnormality requiring admission or further laboratory work-up. Patient feels well and is requesting discharge. Discussed red flags which return. Uncertain as to the initial cause of the patient's hypertension, but has since resolved and he feels well. I have extensively reviewed the treatment plan and discharge instructions with the patient and their family. I have addressed all patient concerns at this time. The patient and family was made aware of what symptoms to monitor for that would warrant a return to the emergency department. Discussed the plan with the patient and family, they demonstrate verbal understanding and agreement with our assessment and plan at this time. The documentation in this chart was dictated using [employer] dictation software. Please excuse any dictation errors. HPI General Date/Time Provider Initiated Documentation: 04/29/22 20:26 . HPI Narrative: 76-year-old male with a past medical history of B-cell lymphoma, GERD, previous TIA, whitecoat syndrome with hypertension, BPH, high cholesterol, who presents today for evaluation of elevated blood pressure and transient dizziness. Patient states that at about 3 PM he felt mildly dizzy, he checked his blood pressure and it was in the 180s systolic. This is notably atypical for him. He kept checking his blood pressure throughout the day. He did contact his on-call PCP Dr. Acevedo, and she recommended taking his nighttime blood pressure meds a little early. His symptoms gradually improved, and by the time he arrived here this evening at around 8 PM his symptoms had completely resolved and he feels fine. He denies any other complaints at this time. He denies any vision changes, room spinning, trauma or falls. No other modifying factors. Related Data Home Medications Medication Instructions Recorded Confirmed aspirin 81 mg chewable tablet 81 mg PO HS 02/07/15 02/13/22 (Aspirin Low-Strength) docusate sodium 50 mg capsule PO 04/14/21 02/13/22 amlodipine 2.5 mg tablet 2.5 mg PO HS #90 tabs 05/07/21 02/13/22 lisinopril 20 1 tab PO HS #90 tabs 02/13/22 02/13/22 mg-hydrochlorothiazide 12.5 mg tablet metoprolol succinate 100 mg 100 mg PO HS #90 tabs 02/13/22 02/13/22 tablet,extended release 24 hr simvastatin 40 mg tablet 40 mg PO HS #90 tabs 02/13/22 02/13/22 Previous Rx's Medication Instructions Recorded amlodipine 2.5 mg tablet 2.5 mg PO HS #90 tabs 05/07/21 lisinopril 20 1 tab PO HS #90 tabs 02/13/22 mg-hydrochlorothiazide 12.5 mg tablet metoprolol succinate 100 mg 100 mg PO HS #90 tabs 02/13/22 tablet,extended release 24 hr simvastatin 40 mg tablet 40 mg PO HS #90 tabs 02/13/22 Allergies Allergy/AdvReac Type Severity Reaction Status Date / Time milk AdvReac Mild mucus Verified 02/13/22 09:23 General RUSS: 2 Review of Systems All systems reviewed & are unremarkable except as noted in HPI and below PFSH All Active Problems (Updated 04/29/22 @ 23:06 by Liborio Melendez DO) Hypertension (Chronic) Encounter for removal of tunneled central venous catheter (CVC) with port (Acut e) Foot swelling (Acute) Hypoxemia (Acute) Pneumonia (Acute) Premature ventricular contractions (Acute) Encounter for insertion of venous access port (Acute) B-cell lymphoma (Chronic) Atypical chest pain (Acute) GERD (gastroesophageal reflux disease) (Acute) get your labs done keep active Cerebral artery occlusion with cerebral infarction (Acute 02/02/15) Duodenitis (Acute 07/10/15) Elevated prostate specific antigen (PSA) (Acute 02/02/15) Esophagitis (Acute) 07/10/15; MILD REFLUX; DR. RDZ Essential hypertension (Acute 02/02/15) Gastritis (Acute 07/10/15) Hiatal hernia (Acute 07/10/15) Hyperlipemia (Acute 02/02/15) White coat syndrome with hypertension (Acute 09/20/15) History of parotidectomy (Acute) History of eye surgery (Acute) Glucose intolerance (Acute) Urinary retention (Acute) Benign prostatic hyperplasia (Chronic) Medical History Diffuse large B cell lymphoma Heart burn Hyperlipidemia Hypertension TIA (transient ischemic attack) UTI (urinary tract infection) Surgical History Colonoscopy - IV Sedation excision of, parotid tumor/gland [id number]- [facility]; ALL BENIGN H/O cataract extraction (R) 10/14/17 (L) 10/01/17 [facility] MAC[facility] SURGERY 10/18/14; MAR[facility]A URBANO S/P TURP (~10/19/18) transesophageal echo Family History Mother , AGE 86 Stroke Hypertension Diabetes a touch Father , AGE 39 No problems noted. Brother , AGE 77 Stroke Maternal Grandfather , age 80 No problems noted. Paternal Grandfather , age 80s No problems noted. Maternal Grandmother , age 90s No problems noted. Paternal Grandmother , age 90s No problems noted. Social History Smoking/Tobacco Use Status: Former Tobacco Use tobacco type: cigarettes Quit Date: 06/30/94 Tobacco: How many years used: 25 Second Hand Exposure: Yes Smoking risk assessment performed?: Yes Alcohol Intake: current Alcohol Intake frequency: a few times a month Alcohol type: wine Drug use: Never Substance use type: does not use Caregiver/Support person: Yes Household members: spouse Housing: apartment Communication Needs: None Do you need help understanding health information?: Never Pets and animals: Yes Pets and animals: cat(s) Sexually active: Yes Do you think of yourself as: straight/heterosexual Current gender identity: male What is your relationship status?: How often do you talk on the phone with friends or family?: decline to answer How often do you get together with friends or relatives?: decline to answer How often do you attend religious or taoism services?: decline to answer Do you belong to any clubs or organized social groups?: decline to answer Panel score (0-1 are the most socially isolated patients): 1 What type of physical activity do you participate in: walking and other Details: Hiking Duration: 60-90 minutes/day Frequency: 3-4 times per week Venus/Jainism: Mu-Ism Special venus needs: No Seatbelt use: always Helmet use: Yes Helmet use: always Drive intox or ride w/intox tour driver: No Do you feel safe at home: Yes Additional Social history: unable to assess privately Exam Narrative Exam Narrative: 1.Const: Well-nourished, Well-developed, appearing stated age 2.Eyes: PERRL, no conjunctival injection, and symmetrical lids. 3.ENT: Atraumatic external nose and ears. Moist MM. Neck: Symmetric, trachea midline, No thyromegaly. 4.CVS: +S1/S2, No murmurs or gallops. Peripheral pulses 2+ and equal in all extremities. Brisk capillary refill in all extremities. 5.RESP: Unlabored respiratory effort. Clear to auscultation bilaterally. No wheezes rales or rhonchi 6.GI: Soft, Nontender/Nondistended, No hepatosplenomegaly. No guarding or rebound. 7.MSK: Normocephalic/Atraumatic, Extremities w/o deformity or ttp No cyanosis or clubbing, Normal movement of all extremities 8.Skin: Warm, Dry. No rashes or lesions. 9.Neuro: seat builder II-XII grossly intact. Sensation grossly intact, no focal neurologic deficits. All 6 cardinal planes of vision are fully intact. No evidence of rotatory or vertical nystagmus. The patient demonstrated a normal [id number], good dexterity. There was no evidence of dysdiadochokinesia. Patient was able to ambulate without difficulty. There was no wide-based gait. Romberg testing was normal. [id number] testing was normal. Sensation was intact bilaterally as well as muscle strength bilaterally for all extremities. Patient was able to verbalize butter cup with no slurring, or miss pronunciation. 10.Psych: (AAO) x3. Appropriate mood and affect
[2022-04-29 22:11] LABS: Abs Immature Grans 0.02 10^3/uL (0.0-0.06); Absolute Basophil Count 0.04 10^3/uL (0.0-0.2); Absolute Eosinophil Count 0.15 10^3/uL (0.0-0.7); Absolute Lymphocyte Count 1.03 10^3/uL (1.2-3.4); Absolute Monocyte Count 0.57 10^3/uL (0.1-0.8); Basophils % 0.6; Eosinophils % 2.3; HCT 43.6 % (40.0-50.0); HGB 14.5 g/dL (13.5-17.5); Immature Grans % 0.3; Lymphocytes % 16.1; MCH 30.8 pg (27.0-33.0); MCHC 33.3 % (32.0-36.0); MCV 93 fL (80-95); MPV 11.3 fL (8.0-11.0); Monocytes % 8.9; Neutrophils % 71.8; Platelet Count 137 10^3/uL (130-400); RBC 4.71 10^6/uL (4.36-5.78); RDW 12.8 % (11.8-14.1); RDW-SD 43.8 fL; WBC 6.41 10^3/uL (4.4-10.8)
[2022-04-29 22:31] LABS: ALT 23 U/L (16-63); AST 21 U/L (15-37); Albumin 3.7 g/dL (3.4-5.0); Alkaline Phosphatase 50 U/L (46-116); Anion Gap 6.8 mmol/L (3-11); BUN 28 mg/dL (7-18); Bilirubin, Total 0.6 mg/dL (0.2-1.0); CO2 30.2 mmol/L (21.0-32.0); CREATININE 1.1 mg/dL (0.70-1.30); Calcium 9.4 mg/dL (8.5-10.1); Chloride 106 mmol/L (98-107); Estimated GFR 68.71 (mL/min/1.73m2); Glucose 120 mg/dL (74-106); NT-proBNP 135 pg/mL (<300); Potassium 3.8 mmol/L (3.5-5.1); Sodium 143 mmol/L (136-145); TSH (W/Ref FT4) 1.34 uIU/mL (0.36-3.74); Total Protein 6.5 g/dL (6.4-8.2); Troponin I < 50 ng/L (<or=60)
[2022-04-29 22:45] VITALS: BP 148/46; PULSE 68; RESP 10
[2022-04-29 23:20] VITALS: BP 155/78; PULSE 64; RESP 16; TEMP 37.2; O2SAT 98
== END 2022-04-29 23:20 | disposition home or self-care (01) ==
PROVIDERS: Emergency Provider Student in an Organized Health Care Education/Training Program; PCP Family Medicine
DX: I10 Essential (primary) hypertension (principal); R42 Dizziness and giddiness; R06.02 Shortness of breath
CPT/HCPCS: 80053; 93005; 99283; 83880; 84443; 84484; 85025; 93010

== ENCOUNTER 2022-09-04 02:51 | Outpatient (CLI) | payer MEDICARE, SELFPAY ==
[2022-09-04 10:18] LABS: Abs Immature Grans 0.02 10^3/uL (0.0-0.06); Absolute Basophil Count 0.06 10^3/uL (0.0-0.2); Absolute Eosinophil Count 0.18 10^3/uL (0.0-0.7); Absolute Lymphocyte Count 1.27 10^3/uL (1.2-3.4); Absolute Monocyte Count 0.64 10^3/uL (0.1-0.8); Absolute Neutrophil Count 3.53 10^3/uL (1.2-6.7); Basophils % 1.1; Eosinophils % 3.2; HCT 48.4 % (40.0-50.0); HGB 16.1 g/dL (13.5-17.5); Immature Grans % 0.4; Lymphocytes % 22.3; MCH 31.4 pg (27.0-33.0); MCHC 33.3 % (32.0-36.0); MCV 95 fL (80-95); MPV 11.4 fL (8.0-11.0); Monocytes % 11.2; Neutrophils % 61.8; Platelet Count 144 10^3/uL (130-400); RBC 5.12 10^6/uL (4.36-5.78); RDW 13.2 % (11.8-14.1); RDW-SD 44.9 fL
[2022-09-04 10:53] LABS: ALT 20 U/L (16-63); AST 19 U/L (15-37); Alkaline Phosphatase 53 U/L (46-116); BUN 30 mg/dL (7-18); Bilirubin, Total 0.9 mg/dL (0.2-1.0); CREATININE 1.3 mg/dL (0.70-1.30); Chloride 105 mmol/L (98-107); Estimated GFR 56.23 (mL/min/1.73m2); Glucose 98 mg/dL (74-106); LDH 181 U/L (85-227); Potassium 4.3 mmol/L (3.5-5.1); Sodium 144 mmol/L (136-145); Total Protein 7.1 g/dL (6.4-8.2)
== END 2022-09-04 02:52 | disposition home or self-care (01) ==
LOC: LBO 02:54
PROVIDERS: PCP Family Medicine; Visit Provider Internal Medicine Hematology & Oncology
DX: C83.35 Diffuse large B-cell lymphoma, lymph nodes of inguinal region and lower limb (principal)
CPT/HCPCS: 36415; 80053; 83615; 85025

== ENCOUNTER 2022-12-16 04:25 | Outpatient (CLI) | payer MEDICARE, SELFPAY ==
[2022-12-16 09:40] LABS: Abs Immature Grans 0.01 10^3/uL (0.0-0.06); Absolute Basophil Count 0.04 10^3/uL (0.0-0.2); Absolute Lymphocyte Count 1.09 10^3/uL (1.2-3.4); Absolute Monocyte Count 0.49 10^3/uL (0.1-0.8); Absolute Neutrophil Count 3.65 10^3/uL (1.2-6.7); Basophils % 0.7; Eosinophils % 3.6; HCT 49.8 % (40.0-50.0); HGB 16.3 g/dL (13.5-17.5); Immature Grans % 0.2; Lymphocytes % 19.9; MCHC 32.7 % (32.0-36.0); MCV 92 fL (80-95); MPV 11.6 fL (8.0-11.0); Monocytes % 8.9; Neutrophils % 66.7; Platelet Count 142 10^3/uL (130-400); RBC 5.44 10^6/uL (4.36-5.78); RDW 13.2 % (11.8-14.1); RDW-SD 44.7 fL; WBC 5.48 10^3/uL (4.4-10.8)
[2022-12-16 10:00] LABS: ALT 22 U/L (16-63); AST 21 U/L (15-37); Alkaline Phosphatase 59 U/L (46-116); Anion Gap 5.9 mmol/L (3-11); BUN 29 mg/dL (7-18); Bilirubin, Total 1.1 mg/dL (0.2-1.0); CO2 29.1 mmol/L (21.0-32.0); CREATININE 1.3 mg/dL (0.70-1.30); Calcium 9.2 mg/dL (8.5-10.1); Chloride 104 mmol/L (98-107); Estimated GFR 55.88 (mL/min/1.73m2); Glucose 96 mg/dL (74-106); Potassium 4.3 mmol/L (3.5-5.1); Sodium 139 mmol/L (136-145); Total Protein 7.3 g/dL (6.4-8.2)
[2022-12-16 10:14] LABS: LDH 179 U/L (85-227)
== END 2022-12-16 04:26 | disposition home or self-care (01) ==
LOC: LBO 04:26
PROVIDERS: PCP Family Medicine; Visit Provider Internal Medicine Hematology & Oncology
DX: C83.35 Diffuse large B-cell lymphoma, lymph nodes of inguinal region and lower limb (principal)
CPT/HCPCS: 36415; 80053; 83615; 85025

== ENCOUNTER 2023-04-14 04:43 | Outpatient (CLI) | payer MEDICARE, SELFPAY ==
[2023-04-14 08:03] LABS: Abs Immature Grans 0.01 10^3/uL (0.0-0.06); Absolute Basophil Count 0.04 10^3/uL (0.0-0.2); Absolute Eosinophil Count 0.22 10^3/uL (0.0-0.7); Absolute Lymphocyte Count 0.98 10^3/uL (1.2-3.4); Absolute Neutrophil Count 3.85 10^3/uL (1.2-6.7); Basophils % 0.7; HCT 50.6 % (40.0-50.0); HGB 16.5 g/dL (13.5-17.5); Immature Grans % 0.2; Lymphocytes % 17.8; MCH 29.6 pg (27.0-33.0); MCHC 32.6 % (32.0-36.0); MCV 91 fL (80-95); MPV 10.8 fL (8.0-11.0); Monocytes % 7.3; Platelet Count 145 10^3/uL (130-400); RBC 5.58 10^6/uL (4.36-5.78); RDW 12.9 % (11.8-14.1); RDW-SD 42.9 fL
[2023-04-14 08:56] LABS: ALT 22 U/L (16-63); AST 21 U/L (15-37); Albumin 3.7 g/dL (3.4-5.0); Alkaline Phosphatase 60 U/L (46-116); Anion Gap 3.9 mmol/L (3-11); BUN 24 mg/dL (7-18); Bilirubin, Total 0.6 mg/dL (0.2-1.0); CO2 32.1 mmol/L (21.0-32.0); CREATININE 1.2 mg/dL (0.70-1.30); Chloride 102 mmol/L (98-107); Estimated GFR 61.52 (mL/min/1.73m2); Glucose 151 mg/dL (74-106); LDH 166 U/L (85-227); Potassium 4.2 mmol/L (3.5-5.1); Sodium 138 mmol/L (136-145); Total Protein 6.8 g/dL (6.4-8.2)
== END 2023-04-14 04:44 | disposition home or self-care (01) ==
LOC: LBO 04:43
PROVIDERS: PCP Family Medicine; Visit Provider Internal Medicine Hematology & Oncology
DX: C83.35 Diffuse large B-cell lymphoma, lymph nodes of inguinal region and lower limb (principal)
CPT/HCPCS: 36415; 80053; 83615; 85025

== ENCOUNTER 2023-08-22 01:12 | Outpatient (CLI) | payer MEDICARE, SELFPAY ==
[2023-08-22 12:05] LABS: Abs Immature Grans 0.01 10^3/uL (0.0-0.06); Absolute Basophil Count 0.06 10^3/uL (0.0-0.2); Absolute Eosinophil Count 0.22 10^3/uL (0.0-0.7); Absolute Lymphocyte Count 1.11 10^3/uL (1.2-3.4); Absolute Monocyte Count 0.49 10^3/uL (0.1-0.8); Absolute Neutrophil Count 3.67 10^3/uL (1.2-6.7); Basophils % 1.1; HCT 53.1 % (40.0-50.0); HGB 17.4 g/dL (13.5-17.5); Immature Grans % 0.2; MCH 29.6 pg (27.0-33.0); MCHC 32.8 % (32.0-36.0); MCV 91 fL (80-95); MPV 10.9 fL (8.0-11.0); Monocytes % 8.8; Neutrophils % 65.9; Platelet Count 159 10^3/uL (130-400); RBC 5.87 10^6/uL (4.36-5.78); RDW 12.9 % (11.8-14.1); RDW-SD 43.6 fL; WBC 5.56 10^3/uL (4.4-10.8)
[2023-08-22 12:25] LABS: ALT 22 U/L (16-63); AST 20 U/L (15-37); Albumin 3.9 g/dL (3.4-5.0); Alkaline Phosphatase 67 U/L (46-116); BUN 27 mg/dL (7-18); CREATININE 1.4 mg/dL (0.70-1.30); Calcium 9.6 mg/dL (8.5-10.1); Chloride 105 mmol/L (98-107); Estimated GFR 51.13 (mL/min/1.73m2); Glucose 97 mg/dL (74-106); LDH 179 U/L (85-227); Potassium 3.8 mmol/L (3.5-5.1); Sodium 143 mmol/L (136-145); Total Protein 7.3 g/dL (6.4-8.2)
== END 2023-08-22 01:13 | disposition home or self-care (01) ==
LOC: LBO 01:13
PROVIDERS: PCP Family Medicine; Visit Provider Internal Medicine Hematology & Oncology
DX: C83.35 Diffuse large B-cell lymphoma, lymph nodes of inguinal region and lower limb (principal)
CPT/HCPCS: 36415; 80053; 83615; 85025

== ENCOUNTER 2023-11-03 05:27 | Outpatient (CLI) | payer MEDICARE, SELFPAY ==
[2023-11-03 13:31] LABS: Abs Immature Grans 0.03 10^3/uL (0.0-0.06); Absolute Basophil Count 0.06 10^3/uL (0.0-0.2); Absolute Eosinophil Count 0.33 10^3/uL (0.0-0.7); Absolute Lymphocyte Count 1.42 10^3/uL (1.2-3.4); Absolute Monocyte Count 0.66 10^3/uL (0.1-0.8); Absolute Neutrophil Count 4.78 10^3/uL (1.2-6.7); Basophils % 0.8 %; Eosinophils % 4.5 %; HCT 50.8 % (40.0-50.0); HGB 16.4 g/dL (13.5-17.5); Immature Grans % 0.4 %; Lymphocytes % 19.5 %; MCH 29.9 pg (27.0-33.0); MCHC 32.3 % (32.0-36.0); MCV 93 fL (80-95); MPV 11.4 fL (8.0-11.0); Monocytes % 9.1 %; Neutrophils % 65.7 %; Platelet Count 147 10^3/uL (130-400); RBC 5.49 10^6/uL (4.36-5.78); RDW 12.9 % (11.8-14.1); RDW-SD 43.8 fL; WBC 7.28 10^3/uL (4.4-10.8)
[2023-11-03 14:15] LABS: Anion Gap 7.8 mmol/L (3-11); BUN 29 mg/dL (7-18); CO2 30.2 mmol/L (21.0-32.0); CREATININE 1.4 mg/dL (0.70-1.30); Calcium 9.4 mg/dL (8.5-10.1); Chloride 104 mmol/L (98-107); Estimated GFR 50.81 (mL/min/1.73m2); Glucose 101 mg/dL (74-106); Potassium 4.5 mmol/L (3.5-5.1); Sodium 142 mmol/L (136-145)
== END 2023-11-03 05:28 | disposition home or self-care (01) ==
LOC: LBO 05:27
PROVIDERS: PCP Family Medicine; Visit Provider Family Medicine
DX: E03.9 Hypothyroidism, unspecified (principal); D64.9 Anemia, unspecified; E87.1 Hypo-osmolality and hyponatremia
CPT/HCPCS: 36415; 80048; 84443; 85025

== ENCOUNTER 2024-03-23 02:32 | Outpatient (CLI) | payer MEDICARE, SELFPAY ==
[2024-03-23 10:59] LABS: Abs Immature Grans 0.01 10^3/uL (0.0-0.06); Absolute Basophil Count 0.04 10^3/uL (0.0-0.2); Absolute Eosinophil Count 0.39 10^3/uL (0.0-0.7); Absolute Lymphocyte Count 1.08 10^3/uL (1.2-3.4); Absolute Monocyte Count 0.65 10^3/uL (0.1-0.8); Absolute Neutrophil Count 3.39 10^3/uL (1.2-6.7); Basophils % 0.7 %; HCT 46.3 % (40.0-50.0); HGB 15.4 g/dL (13.5-17.5); Immature Grans % 0.2 %; Lymphocytes % 19.4 %; MCH 30.3 pg (27.0-33.0); MCHC 33.3 % (32.0-36.0); MCV 91 fL (80-95); MPV 10.2 fL (8.0-11.0); Monocytes % 11.7 %; Platelet Count 173 10^3/uL (130-400); RBC 5.09 10^6/uL (4.36-5.78); RDW 13.6 % (11.8-14.1); RDW-SD 45.9 fL; WBC 5.56 10^3/uL (4.4-10.8)
[2024-03-23 11:19] LABS: ALT 36 U/L (16-63); AST 31 U/L (15-37); Albumin 3.5 g/dL (3.4-5.0); Alkaline Phosphatase 64 U/L (46-116); Anion Gap 6.1 mmol/L (3-11); BUN 22 mg/dL (7-18); Bilirubin, Total 0.87 mg/dL (0.2-1.0); CO2 30.9 mmol/L (21.0-32.0); CREATININE 1.4 mg/dL (0.70-1.30); Chloride 100 mmol/L (98-107); Estimated GFR 50.81 (mL/min/1.73m2); Glucose 115 mg/dL (74-106); LDH 280 U/L (85-227); Potassium 3.9 mmol/L (3.5-5.1); Sodium 137 mmol/L (136-145); Total Protein 6.9 g/dL (6.4-8.2)
== END 2024-03-23 02:33 | disposition home or self-care (01) ==
PROVIDERS: PCP Family Medicine; Visit Provider Internal Medicine Hematology & Oncology
DX: C83.35 Diffuse large B-cell lymphoma, lymph nodes of inguinal region and lower limb (principal)
CPT/HCPCS: 36415; 80053; 83615; 85025

== ENCOUNTER 2024-04-28 01:25 | Outpatient (CLI) | payer MEDICARE, SELFPAY ==
[2024-04-28 10:02] LABS: Abs Immature Grans 0.01 10^3/uL (0.0-0.06); Absolute Basophil Count 0.06 10^3/uL (0.0-0.2); Absolute Eosinophil Count 0.41 10^3/uL (0.0-0.7); Absolute Lymphocyte Count 0.97 10^3/uL (1.2-3.4); Absolute Monocyte Count 0.46 10^3/uL (0.1-0.8); Absolute Neutrophil Count 3.53 10^3/uL (1.2-6.7); Basophils % 1.1 %; Eosinophils % 7.5 %; HCT 47.1 % (40.0-50.0); HGB 15.4 g/dL (13.5-17.5); Immature Grans % 0.2 %; Lymphocytes % 17.8 %; MCH 30.1 pg (27.0-33.0); MCHC 32.7 % (32.0-36.0); MCV 92 fL (80-95); MPV 10.6 fL (8.0-11.0); Monocytes % 8.5 %; Neutrophils % 64.9 %; Platelet Count 181 10^3/uL (130-400); RBC 5.12 10^6/uL (4.36-5.78); RDW-SD 47.5 fL; WBC 5.44 10^3/uL (4.4-10.8)
[2024-04-28 10:10] LABS: ALT 27 U/L (16-63); AST 28 U/L (15-37); Albumin 3.7 g/dL (3.4-5.0); Alkaline Phosphatase 64 U/L (46-116); Anion Gap 6.2 mmol/L (3-11); BUN 29 mg/dL (7-18); Bilirubin, Total 0.92 mg/dL (0.2-1.0); CO2 31.8 mmol/L (21.0-32.0); CREATININE 1.4 mg/dL (0.70-1.30); Calculated LDL 112 mg/dL (<100); Chloride 105 mmol/L (98-107); Cholesterol 212 mg/dL (<200); Estimated GFR 50.81 (mL/min/1.73m2); Glucose 81 mg/dL (74-106); HDL Cholesterol 79 mg/dL (40-60); LDH 243 U/L (85-227); Potassium 4.1 mmol/L (3.5-5.1); Sodium 143 mmol/L (136-145); Total Protein 6.9 g/dL (6.4-8.2); Triglyceride 107 mg/dL (<150)
== END 2024-04-28 01:26 | disposition home or self-care (01) ==
LOC: LBO 01:25
PROVIDERS: Internal Medicine Hematology & Oncology; PCP Family Medicine; Visit Provider Family Medicine
DX: E78.5 Hyperlipidemia, unspecified (principal); C83.35 Diffuse large B-cell lymphoma, lymph nodes of inguinal region and lower limb
CPT/HCPCS: 36415; 80053; 80061; 83615; 85025

== ENCOUNTER 2024-07-07 03:56 | Outpatient (CLI) | payer MEDICARE, SELFPAY ==
[2024-07-07 13:37] LABS: Abs Immature Grans 0.01 10^3/uL (0.0-0.06); Absolute Basophil Count 0.07 10^3/uL (0.0-0.2); Absolute Eosinophil Count 0.54 10^3/uL (0.0-0.7); Absolute Lymphocyte Count 1.38 10^3/uL (1.2-3.4); Absolute Monocyte Count 0.55 10^3/uL (0.1-0.8); Absolute Neutrophil Count 3.26 10^3/uL (1.2-6.7); Basophils % 1.2 %; Eosinophils % 9.3 %; Immature Grans % 0.2 %; Lymphocytes % 23.8 %; MCH 29.6 pg (27.0-33.0); MCHC 32.7 % (32.0-36.0); MCV 91 fL (80-95); MPV 11.5 fL (8.0-11.0); Monocytes % 9.5 %; Platelet Count 168 10^3/uL (130-400); RDW 14.2 % (11.8-14.1); RDW-SD 47.2 fL; WBC 5.81 10^3/uL (4.4-10.8)
[2024-07-07 13:58] LABS: ALT 27 U/L (16-63); AST 27 U/L (15-37); Albumin 3.7 g/dL (3.4-5.0); Alkaline Phosphatase 59 U/L (46-116); Anion Gap 6.4 mmol/L (3-11); BUN 21 mg/dL (7-18); Bilirubin, Total 0.82 mg/dL (0.2-1.0); CO2 32.6 mmol/L (21.0-32.0); CREATININE 1.5 mg/dL (0.70-1.30); Calcium 10.1 mg/dL (8.5-10.1); Chloride 104 mmol/L (98-107); Estimated GFR 46.77 (mL/min/1.73m2); Glucose 136 mg/dL (74-106); LDH 215 U/L (85-227); Potassium 3.9 mmol/L (3.5-5.1); Sodium 143 mmol/L (136-145); Total Protein 6.7 g/dL (6.4-8.2)
== END 2024-07-07 03:57 | disposition home or self-care (01) ==
LOC: LBO 03:57
PROVIDERS: PCP Family Medicine; Visit Provider Internal Medicine Hematology & Oncology
DX: C83.35 Diffuse large B-cell lymphoma, lymph nodes of inguinal region and lower limb (principal)
CPT/HCPCS: 36415; 80053; 83615; 85025

== ENCOUNTER 2024-12-16 00:30 | Outpatient (CLI) | payer MEDICARE, SELFPAY ==
--- NOTE | 2024-12-16 08:10 | DI.CT_ITS ---
Exam(s) CT SINUS WO EXAM: CT SINUS WO CLINICAL HISTORY: Chronic symptoms, previous CT scan (2011),facial pressure,nasal congestion. Evaluate for sinusitis. TECHNIQUE: Imaging Protocol: Axial computed tomography images with coronal and sagittal reformatted images were created and reviewed. COMPARISON: No exams were available for comparison FINDINGS: AXIAL IMAGES: Frontal sinuses: Normally aerated. Ethmoid air cells: There is mild mucosal thickening in the ethmoid air cells bilaterally. Maxillary sinuses: There is mild mucosal thickening in the right maxillary sinus. Sphenoid sinus: Normally aerated. Ostiomeatal complexes: There has been resection of the right ostiomeatal complex and the floor of the right ethmoid air cells. Osseous nasal septum: The nasal septum deviates to the left. Visualized regional soft tissues: No acute findings. Orbits: Unremarkable. Bones: There is mild thickening of the garza of the maxillary sinuses bilaterally which can be seen with sequelae of chronic sinus disease. There is a small defect in the floor of the right maxillary sinus (series 6, image 126). Mastoid Air Cells: Normally aerated. IMPRESSION: 1. Mild mucosal thickening in the ethmoid air cells and right maxillary sinus. 2. Postsurgical changes involving the right maxilla, right ostiomeatal complex and the right ethmoid air cells. 3. Small area of erosion involving the floor of the right maxillary sinus. 4. No fluid levels are seen in the sinuses. RADIATION DOSE DELIVERED: 119.29mGy.cm Total DLP DATA REPOSITORY: All CT scans at this facility are submitted to the National Radiology Data Registry (NRDR) Dose Index Registry (DIR) with the [employer] (ACR). RADIATION OPTIMIZATION: All CT scans at this facility use at least one of these dose optimization techniques: automated exposure control; mA and/or kV adjustment per patient size (includes targeted exams where dose is matched to clinical indication); or iterative reconstruction.
== END 2024-12-16 00:50 ==
LOC: DI 00:30
PROVIDERS: PCP Family Medicine; Visit Provider Otolaryngology
DX: R44.8 Other symptoms and signs involving general sensations and perceptions (principal); R09.81 Nasal congestion; J34.2 Deviated nasal septum
CPT/HCPCS: 70486

== ENCOUNTER 2025-05-18 09:54 | Outpatient (CLI) | payer MEDICARE, SELFPAY ==
--- NOTE | 2025-05-18 09:45 | RT.EKG_ITS ---
APPROVED REPORT Exam: Resting ECG Reason for Exam: Tachycardia Patient Location: O HR:85 bpm ECG Measurements Heart Rate 85 AXIS IL [id number] P [id number] QRSd 85 QRS -12 QT 354 T 53 QTc 421 Conclusion Sinus rhythm Artifact Low voltage, extremity leads...all extremity leads <0.5mV
== END 2025-05-18 09:55 | disposition home or self-care (01) ==
LOC: DI.CM 09:55
PROVIDERS: PCP Family Medicine; Visit Provider Nurse Practitioner Family
DX: R00.0 Tachycardia, unspecified (principal); R79.89 Other specified abnormal findings of blood chemistry
CPT/HCPCS: 93010

== ENCOUNTER 2025-05-18 11:26 | Outpatient (CLI) | payer MEDICARE, SELFPAY ==
[2025-05-18 14:06] LABS: Abs Immature Grans 0.01 10^3/uL (0.0-0.06); HCT 52.2 % (40.0-50.0); HGB 17.5 g/dL (13.5-17.5); Immature Grans % 0.1 %; MCH 29.8 pg (27.0-33.0); MCHC 33.5 % (32.0-36.0); MCV 89 fL (80-95); MPV 11.4 fL (8.0-11.0); Platelet Count 148 10^3/uL (130-400); RBC 5.87 10^6/uL (4.36-5.78); RDW 12.9 % (11.8-14.1); RDW-SD 41.8 fL; WBC 6.95 10^3/uL (4.4-10.8)
[2025-05-18 14:29] LABS: D-Dimer 1279 ng/mlFEU (<500)
[2025-05-18 16:07] LABS: TSH (W/Ref FT4) 1.05 uIU/mL (0.55-4.78)
[2025-05-18 16:08] LABS: ALT 16 U/L (10-49); AST 20 U/L (<34); Albumin 4.6 g/dL (3.4-5.0); Alkaline Phosphatase 54 U/L (46-116); Anion Gap 9 mmol/L (3-11); BUN 18 mg/dL (9-23); Bilirubin, Total 1.40 mg/dL (0.2-1.2); CO2 32.0 mmol/L (20.0-31.0); Calcium 11.3 mg/dL (8.3-10.6); Chloride 102 mmol/L (98-107); Glucose 85 mg/dL (74-106); Potassium 3.3 mmol/L (3.5-5.1); Sodium 143 mmol/L (136-145); Total Protein 7.1 g/dL (5.7-8.2)
== END 2025-05-18 11:27 | disposition home or self-care (01) ==
LOC: LOS 11:27
PROVIDERS: PCP Family Medicine; Visit Provider Nurse Practitioner Family
DX: I48.91 Unspecified atrial fibrillation (principal); I48.92 Unspecified atrial flutter
CPT/HCPCS: 36415; 80053; 84443; 85025; 85379

== ENCOUNTER → 2025-05-19 12:08 | Outpatient (CLI) | payer MEDICARE, SELFPAY ==
--- NOTE | 2025-05-19 11:31 | DI.CT_ITS ---
Exam(s) CT CHEST PE CTA EXAM: CT CHEST PE CTA CLINICAL HISTORY: ro PE, ELEVATED D DIMER, R79.89. TECHNIQUE: Imaging Protocol: Axial CT angiography was performed with multi- slice acquisition and multi-planar reconstructions as well as axial, coronal and sagittal MIP reconstructions. Computer aided detection (CAD) was utilized. CONTRAST MATERIAL: Intravenous: Omnipaque 350 Contrast volume:100 ml COMPARISON: CT CHEST/ABD WO from 05/11/[address] CHEST PE CTA from 04/14/2021 FINDINGS: Pulmonary Arteries: No evidence of filling defect to suggest pulmonary emboli. Mediastinum and An: Stable soft tissue nodule in the anterior mediastinum, superior to the left ventricle. No new adenopathy or fluid collection. Small hiatal hernia. Pulmonary parenchyma: No consolidation or dominant measurable mass. Pleura: No effusion or pneumothorax. Heart: The heart is not dilated. Moderate coronary artery calcifications are seen. Aorta: Thoracic aorta non-dilated. No dissection. Upper abdomen: No acute findings. Bones: Unremarkable for age. Tubes, Catheters, and Lines: None Soft tissues: Unremarkable. IMPRESSION: No evidence of pulmonary embolism or other acute abnormality. RADIATION DOSE DELIVERED: Total DLP DATA REPOSITORY: All CT scans at this facility are submitted to the National Radiology Data Registry (NRDR) Dose Index Registry (DIR) with the [employer] (ACR). RADIATION OPTIMIZATION: All CT scans at this facility use at least one of these dose optimization techniques: automated exposure control; mA and/or kV adjustment per patient size (includes targeted exams where dose is matched to clinical indication); or iterative reconstruction.
--- NOTE | 2025-05-19 13:00 | DI.RAD_ITS ---
Exam(s) XR CHEST 2V PA LATERAL EXAM: XR CHEST 2V PA LATERAL CLINICAL HISTORY: dyspnea, artrial fibrillation and flutter, I48.91 I48.92. TECHNIQUE: 2D digital imaging was performed. COMPARISON: Prior chest x-ray January 2021 FINDINGS: 2 views: Previously present left subclavian Port-A-Cath has been removed. There presently no central lines. Heart size is normal. The mediastinum is not widened. Lungs are clear. No infiltrates nor pleural effusions. IMPRESSION: No acute pulmonary findings. DATA REPOSITORY: RADIATION DOSE DELIVERED:
[2025-05-19] MEDS: Normal Saline - Diluent 50 ML VIAL IJ (15:10)
[2025-05-19] MEDS: Omnipaque 350 MG/ML 100 ML BTL IJ (15:10)
[2025-05-19] MEDS: Normal Saline Flush 10 ML SYR IVP (15:11)
== END ==
LOC: DI 12:16
PROVIDERS: PCP Family Medicine; Visit Provider Nurse Practitioner Family
DX: R79.89 Other specified abnormal findings of blood chemistry (principal); I48.91 Unspecified atrial fibrillation; I48.92 Unspecified atrial flutter
CPT/HCPCS: 71275; 71046; J3490

== ENCOUNTER 2025-05-19 14:48 | Outpatient (RCR) | payer MEDICARE, SELFPAY ==
--- NOTE | 2025-05-24 14:23 | W.HOLTRPT ---
Date of service: 05/24/25 Time of Service: 14:23 Holter Monitor Report Referring Provider:: Jose Luis Mendiola Indications:: Tachycardia Holter Monitor Note: This is a 48-hour Holter monitor. Rhythm throughout was sinus with an average heart rate of 64. Minimum was 46, maximum 104 There were very rare isolated atrial and ventricular ectopic beats A total of 13 self-limited atrial runs occurred. The majority were 5-10 beats in length There was no atrial fibrillation, no high-grade AV block, no pauses greater than 3 seconds Reported symptoms correlated to sinus rhythm rate 73
== END 2025-05-29 23:59 | disposition home or self-care (01) ==
LOC: CARDOPNVT 14:48
PROVIDERS: PCP Family Medicine; Visit Provider Nurse Practitioner Family
DX: R00.0 Tachycardia, unspecified (principal); I48.0 Paroxysmal atrial fibrillation
CPT/HCPCS: 93227; 93225; 93226

== ENCOUNTER → 2025-05-31 00:29 | Outpatient (CLI) | payer MEDICARE, SELFPAY ==
--- NOTE | 2025-05-31 07:15 | DI.US_ITS ---
APPROVED REPORT EXAM: Comprehensive 2D, Doppler, and color-flow Echocardiogram Patient Location: Out-Patient Career Consultant: Sari De Jesus RDCS (AE) Indications: A Fib Other Information Study Quality: Adequate Conclusion Normal left ventricular wall thickness and chamber size. Ejection fraction is 60%. Wall motion is normal Normal right ventricular size and function Both atria are normal in size Aortic valve is trileaflet and sclerotic without stenosis or regurgitation There is no additional significant valvular disease Normal estimated right ventricular systolic pressure 26 mmHg Wall motion Left Ventricle The left ventricle is normal size. The left ventricular systolic function is normal. The left ventricular ejection fraction is within the normal range. There is normal left ventricular wall thickness. There is normal LV segmental wall motion. There is no ventricular septal defect visualized. LVEF is 60%. Right Ventricle The right ventricle is normal size. The right ventricular systolic function is normal. Atria The left atrium size is normal. The right atrium size is normal. The interatrial septum is intact with no evidence for an atrial septal defect. Aortic Valve The aortic valve is mildly sclerotic Aortic valve is trileaflet. There is no aortic valvular stenosis. No aortic regurgitation is present. Mitral Valve The mitral valve is normal in structure. No evidence of mitral valve stenosis. Trace mitral regurgitation. Tricuspid Valve The tricuspid valve is normal in structure. There is no tricuspid valve stenosis. Mild tricuspid regurgitation. The RVSP is 26.4_ mmHg. Pulmonic Valve The pulmonary valve is normal in structure. There is no pulmonic valvular stenosis. Trace pulmonic regurgitation. Great Vessels The aortic root is normal in size. The ascending aorta is normal in size. Aortic arch is not well visualized. IVC is normal in size and collapses >50% with inspiration. Pericardium There is no pericardial effusion. 2D Dimensions IVSD d PLAX 0.91 cm M: 0.6-1.2 Ao Root d 3.24 cm M: 3.1 - 3.7 LVPW d PLAX 0.92 cm M: 0.6 - 1.2 Ao Asc Diam d 3.08 cm M: 2.6 - 3.4 LVID d PLAX 4.60 cm M: 4.2 - 5.8 LVDs 3.13 cm M: 2.5 - 4.0 LV EF Teichholz 60.1 % FS 31.95 % LV EDV (Teich) 97.2 mL LV ESV (Teich) 38.8 mL Auto EF LV EDV A4C 94.3 mL LV EDV A2C 101.1 mL LV EDV BP 97.9 mL LV ESV A4C 37.8 mL LV ESV A2C 40.9 mL LV ESV BP 39.3 mL LVEF(%) A4C 60.0 % LVEF(%) A2C 59.5 % LVEF(%) BP 59.9 % LV SV A4C 56.6 ml LV SV A2C 60.2 ml LV SV BP 58.7 ml LV CO A4C 4.1 L/min LV CO A2C 4.4 L/min LV CO BP 4.2 L/min HR A4C 72.44 BPM HR A2C 73.02 BPM LV EDV Index (BP) LA Volume LA Length A4C 4.8 cm LA Length A2C 4.2 cm LA Area A4C s 12.47 cm2 LA Area A2C s 11.70 cm2 LA Vol A4C A-L 27.41 mL LA Vol A2C A-L 27.55 mL LA Vol Biplane A-L 29.4 mL LA Vol/BSA A4C A-L LA Vol/BSA A2C A-L LA Vol/BSA BP A-L 14.8 mL/m2 LA Vol A4C MOD 24.7 mL LA Vol A2C MOD 26.1 mL LA Vol BP MOD 27.0 mL RA Volume RA Area A4C 11.7 cm2 RA ESV A4C (A-L) 25.8mL RA Vol/BSA A4C A-L RA Length A4C 4.5 cm RA ESV A4C (MOD) 22.8mL LV Diastology MV E' medial 0.071 (>0.07 m/s) MV E Vmax 0.86 (0.4-1.3 m/s) MV E/E' MED 11.99 (<14) MV A Vmax 1.15 (0.4-1.3 m/s) MV E' lateral 0.097 (>0.1 m/s) E/A Ratio 0.7 MV E/E' LAT 8.80 (<14) MV E' Average 0.084 m/s MV E/E'(average) 10.15 Aortic Valve AoV Vmax 1.25 m/s LVOT Vmax 0.98 m/s AoV Peak Grad 6.3 mmHg LVOT Peak Grad 3.8 mmHg AoV Area (Vmax) 2.16 cm2 LVOT VTI 0.213 m AoV VTI 0.260 m LVOT Mean Grad 2.1 mmHg AoV Mean Parth. 0.88 m/s LVOT SV 59.02 mL AoV Mean Grad 3.6 mmHg LVOT Diam s 1.85 cm AoV Area (VTI) 2.27 cm2 AV Regurg Peak Gr. 6.28 mmHg Velocity Ratio 0.78 Mitral Valve MV DT 259 (160-240 msec) MV Vmax TIPS 1.13 m/s MV Mean Grad 1.9 (<2mmHg) MV VTI 0.353 m Pulmonary Valve PV Vmax 0.91 (0.5-1.5 m/s) RVOT Vmax 0.63 m/s PV Peak Grad 3.3 mmHg RVOT Peak Gr. 1.6 mmHg PV Mean Parth 0.61 m/s RVOT VTI 0.140 m PV Mean Grad 1.7 mmHg RVOT Mean Gr. 0.9 mmHg Tricuspid Valve RA Pressure 3.00 mmHg TR Vmax 2.42 m/s TV S' 0.11 m/s TR Peak Grad 23.4 mmHg RVSP (TR) 26.4 mmHg
== END ==
PROVIDERS: PCP Family Medicine; Visit Provider Nurse Practitioner Family
DX: I48.91 Unspecified atrial fibrillation (principal); I48.92 Unspecified atrial flutter
CPT/HCPCS: 93306